=== PATIENT | female | born 1975 | race African-American/Black ===

== ENCOUNTER 2022-07-26 08:14 | Emergency (ER) | payer OTHER ==
[2022-07-26] MEDS ORDERED: diphenhydrAMINE INJ 50 MG/ML VIAL IVP STA (08:36)
[2022-07-26] MEDS ORDERED: KETOROLAC 15 MG/ML VIAL IVP STA (08:36)
--- NOTE | 2022-07-26 08:40 | ED Physician Documentation ---
PD HPI CHEST PAIN - Stated complaint Stated Complaint: SOA/COUGH/RASH - Chief complaint Chief Complaint: Resp - History obtained from History obtained from: Patient - Additional information Additional information: This is a previously healthy 47-year-old woman who went to [facility] a week ago today for chest pain with dry cough. Reportedly per her, chest x-ray was done with no pertinent positive findings and she was sent home. She continued to have severe anterior persistent chest pain that kept her up at night. No real radiation to it and she is short of breath with it without pleuritic pain. She went back to [place] yesterday and had a repeat x-ray done with a nasal swab. She reports that she was positive for metapneumovirus with findings of pneumonia on x-ray and started on doxycycline. Shortly after starting the doxycycline she developed body wide rash and itching. Her symptoms are no better. She denies recent travel or pedal edema or calf pain. She has had subjective and fevers and chills. Cough continues to be dry. 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) - Past Surgical History Past Surgical History: Yes /BUTTER WRAPPER: section, Other - Present Medications Home Medications: Ambulatory Orders Medication Instructions Recorded Confirmed Cefdinir 300 mg PO BID #20 cap 07/26/22 Doxepin [SINEquan] 10 mg PO TID PRN #15 cap 07/26/22 Meloxicam [Mobic] 7.5 mg PO BID PRN #20 tablet 07/26/22 - Allergies Allergies/Adverse Reactions: Allergies Allergy/AdvReac Type Severity Reaction Status Date / Time amoxicillin Allergy Rash Verified 07/26/22 08:26 - Social History Does the pt smoke?: No Smoking Status: Never smoker Does the pt drink ETOH?: Yes Does the pt have substance abuse?: No - Immunizations Immunizations are current?: Yes - POLST Patient has POLST: No PD ED PE NORMAL - Vitals Vital signs reviewed: Yes - General General: Alert and oriented X 3, No acute distress - HEENT HEENT: PERRL, EOMI, Ears normal - Neck Neck: Supple, no meningeal sign, No bony TTP - Cardiac Cardiac: RRR, No murmur - Respiratory Respiratory: No respiratory distress, Clear bilaterally, Other (Chest pain is reproducible with anterior palpation to the right superior sternum.) - Abdomen Abdomen: Non tender - Back Back: No CVA TTP, No spinal TTP - Derm Derm: Normal color, Warm and dry, Other (Mild body wide nonspecific rash) - Extremities Extremities: No edema, No calf tenderness / cord - Neuro Neuro: Alert and oriented X 3, Normal speech - Psych Psych: Normal mood, Normal affect Results - Vitals Vitals: Vital Signs - 24 hr 07/26/22 07/26/22 08:22 09:57 Temperature 36.2 C L Heart Rate 93 71 Respiratory 18 16 Rate Blood Pressure 116/84 H 142/88 H O2 Saturation 100 97 Oxygen O2 Source Room air - EKG (time done) 0844 Rate: Rate (enter#) (75) Rhythm: NSR [place]: Normal Intervals: Normal NM QRS: LVH Ischemia: T wave inversion Compare to prior EKG: Changed from prior EKG (Compared with EKG dated 11/25/2012 she has new LVH and deep T wave inversion inferiorly/septal/laterally) Computer interpretation: Agree with computer - Labs Labs: Laboratory Tests 07/26/22 07/26/22 07/26/22 08:41 08:41 08:41 WBC 6.1 RBC 4.51 Hgb 13.5 Hct 40.1 MCV 88.9 MCH 29.9 MCHC 33.7 RDW 12.1 Plt Count 200 MPV 10.1 Neut # (Auto) 3.4 Lymph # (Auto) 2.1 [place] # (Auto) 0.4 Eos # (Auto) 0.2 Baso # (Auto) 0.0 Absolute Nucleated RBC 0.00 Nucleated RBC % 0.0 Sodium 137 Potassium 3.3 L Chloride 101 Carbon Dioxide 27 Anion Gap 9.0 BUN 10 Creatinine 0.9 Estimated GFR (MDRD) 82 L Glucose 123 H Calcium 9.2 Total Bilirubin 0.8 AST 47 H ALT 47 Alkaline Phosphatase 159 H Troponin I High Sens 4.3 Total Protein 8.2 Albumin 4.2 Globulin 4.0 Albumin/Globulin Ratio 1.1 - Rads (name of study) CT PA Radiology: Final report received, EMP read indepedently PD Medical Decision Making - ED course ED course: 47-year-old woman who presents with chest pain ongoing for a week with an abnormal EKG. Initially the EKG was compared with the most recent EKG in the chart dated November 25, 2012. However on further review I noticed that EKG had a different name on it so we actually did not have a prior EKG to compare with. I emailed the planning and analysis manager records to let her know of the inconsistency. Her EKG does show LVH with inverted T waves. Now the acuity of this is unknown. There was a concern for PE and CTPA was done without findings of that but she did have findings consistent with pneumonia. She has a history of amoxicillin allergy and now has a reaction to doxycycline. After the administration of Toradol and Benadryl she was feeling much better and we will change up her antibiotics, and follow-up with her PCP for consideration for echocardiography was discussed and stressed with the patient given the EKG findings. Departure - Departure Disposition: 01 Home, Self Care Clinical Impression: Chest pain Qualifiers: Chest pain type: unspecified Qualified Code(s): R07.9 - Chest pain, unspecified Pneumonia Qualifiers: Pneumonia type: due to unspecified organism Laterality: left Lung location: lower lobe of lung Qualified Code(s): J18.9 - Pneumonia, unspecified organism Condition: Good Record reviewed to determine appropriate education?: Yes Instructions: Pneumonia Dc Prescriptions: Cefdinir 300 mg PO BID #20 cap Meloxicam [Mobic] 7.5 mg PO BID PRN #20 tablet PRN Reason: Pain Doxepin [SINEquan] 10 mg PO TID PRN #15 cap PRN Reason: Itching Comments: I sent your prescriptions electronically to [facility] in [place]. As discussed, you do have an abnormal EKG, there is no sign of active heart disease on your labs so I suspect this is not related to your current pain and we do have another explanation for the pain which is the pneumonia. That said you should follow-up with your primary care physician both for recheck of the pneumonia as well as consideration for echocardiography given the abnormal EKG. Probably safe to assume that going forward you are allergic to doxycycline in addition to the amoxicillin you are previously allergic to. Return for new or worsening symptoms.
[2022-07-26 08:45] LABS: BASOPHILS % (AUTO) 0.3 %; EOSINOPHILS # (AUTO) 0.2 10^3/uL (0.0-0.7); EOSINOPHILS % (AUTO) 3.3 %; HCT - HEMATOCRIT 40.1 % (37.0-47.0); HGB - HEMOGLOBIN 13.5 g/dL (12.0-16.0); LYMPHOCYTES # (AUTO) 2.1 10^3/uL (1.5-3.5); LYMPHOCYTES % (AUTO) 35.1 %; MEAN CORPUSCULAR HEMOGLOBIN 29.9 pg (27.0-31.0); MEAN CORPUSCULAR HGB CONC 33.7 g/dL (32.0-36.0); MEAN CORPUSCULAR VOLUME 88.9 fL (81.0-99.0); MEAN PLATELET VOLUME 10.1 fL (7.9-10.8); MONOCYTES # (AUTO) 0.4 10^3/uL (0.0-1.0); MONOCYTES % (AUTO) 5.9 %; NEUTROPHILS # (AUTO) 3.4 10^3/uL (1.5-6.6); NEUTROPHILS % (AUTO) 55.1 %; PLT - PLATELET COUNT 200 10^3/uL (130-450); RED BLOOD COUNT 4.51 10^6/uL (4.20-5.40); RED CELL DISTRIBUTION WIDTH 12.1 % (12.0-15.0); WHITE BLOOD COUNT 6.1 x10^3/uL (4.8-10.8)
[2022-07-26] MEDS ORDERED: iohexoL-300 100 ML VIAL ONE (08:48)
[2022-07-26 09:08] LABS: ALBUMIN 4.2 g/dL (3.2-5.5); ALBUMIN/GLOBULIN RATIO 1.1 (1.0-2.2); BILIRUBIN,TOTAL 0.8 mg/dL (0.2-1.0); CALCIUM 9.2 mg/dL (8.5-10.3); CREATININE 0.9 mg/dL (0.4-1.0); POTASSIUM 3.3 mmol/L (3.5-5.0); TOTAL PROTEIN 8.2 g/dL (6.7-8.2)
--- OUTSIDE RECORDS SUMMARY | 2022-07-26 09:14 | EXTERNAL MEDICAL SUMMARY RPT | Continuity of Care Document ---
:1975 Author Organization [facility] Address [address] [place] [address] Phone Care Team Providers Name Role Phone Christiano Suárez Unavailable Unavailable Allergies and Intolerances date description facility type (no date) Mild [facility] (unknown) (no date) amoxicillin [facility] (unknown) Encounters No information. Functional Status No information. Immunizations No information. Medications date description facility 2022-07-25 00:00 Doxycycline Hyclate [facility] 2022-07-20 00:00 Benzonatate [facility] Problems date description facility 2022-07-20 00:00 Acute upper respiratory infection [facility] 2022-07-25 00:00 Human metapneumovirus (hMPV) pneumonia [facility] 2022-07-25 00:00 Atypical pneumonia [facility] Procedures date description facility 2022-07-20 00:00 X-ray of chest, two views [facility] 2022-07-25 00:00 Computed tomography angiography of ches t with [facility] contrast for pulmonary embolus Results/Labs test date author facility value unit interpret ation Result panel 1 (unknown) (no date[facility]) Result panel 2 (unknown) (no date) (unknown[facility]) Result panel 3 (unknown) (no date) (unknown[facility]) Result panel 4 (unknown) (no date) (unknown[facility]) Result panel 5 (unknown) (no date) (unknown[facility]) Result panel 6 (unknown) (no date) (unknown[facility]) Result panel 7 (unknown) (no date) (unknown[facility]) Result panel 8 (unknown) (no date) (unknown[facility]) Result panel 9 (unknown) (no date) (unknown[facility]) Result panel 10 (unknown) (no date) (unknown[facility]) Result panel 11 (unknown) (no date) (unknown[facility]) Result panel 12 (unknown) (no date) (unknown[facility]) Result panel 13 (unknown) (no date) (unknown[facility]) Result panel 14 (unknown) (no date) (unknown[facility]) Result panel 15 (unknown) (no date) (unknown[facility]) Result panel 16 (unknown) (no date) (unknown[facility]) Result panel 17 (unknown) (no date) (unknown[facility]) Result panel 18 (unknown) (no date) (unknown[facility]) Result panel 19 (unknown) (no date) (unknown[facility]) Result panel 20 (unknown) (no date) (unknown[facility]) Result panel 21 (unknown) (no date) (unknown[facility]) Result panel 22 (unknown) (no date) (unknown[facility]) Result panel 23 (unknown) (no date) (unknown[facility]) Result panel 24 (unknown) (no date) (unknown[facility]) Result panel 25 (unknown) (no date) (unknown[facility]) Result panel 26 (unknown) (no date) (unknown[facility]) Result panel 27 (unknown) (no date) (unknown[facility]) Result panel 28 (unknown) (no date) (unknown[facility]) Result panel 29 (unknown) (no date) (unknown[facility]) Result panel 30 (unknown) (no date) (unknown[facility]) Result panel 31 (unknown) (no date) (unknown[facility]) Result panel 32 (unknown) (no date) (unknown[facility]) Result panel 33 (unknown) (no date) (unknown[facility]) Result panel 34 (unknown) (no date) (unknown[facility]) Result panel 35 (unknown) (no date) (unknown[facility]) Result panel 36 (unknown) (no date) (unknown[facility]) Result panel 37 (unknown) (no date) (unknown[facility]) Result panel 38 (unknown) (no date) (unknown[facility]) Result panel 39 (unknown) (no date) (unknown[facility]) Result panel 40 (unknown) (no date) (unknown[facility]) Result panel 41 (unknown) (no date) (unknown[facility]) Result panel 42 (unknown) (no date) (unknown[facility]) Result panel 43 (unknown) (no date) (unknown[facility]) Result panel 44 (unknown) (no date) (unknown[facility]) Result panel 45 (unknown) (no date) (unknown[facility]) Result panel 46 (unknown) (no date) (unknown[facility]) Result panel 47 (unknown) (no date) (unknown[facility]) Result panel 48 (unknown) (no date) (unknown[facility]) Result panel 49 (unknown) (no date) (unknown[facility]) Result panel 50 (unknown) (no date) (unknown[facility]) Result panel 51 (unknown) (no date) (unknown[facility]) Result panel 52 (unknown) (no date) (unknown[facility]) Result panel 53 (unknown) (no date) (unknown[facility]) Result panel 54 (unknown) (no date) (unknown[facility]) Result panel 55 (unknown) (no date) (unknown[facility]) Result panel 56 (unknown) (no date) (unknown[facility]) Result panel 57 (unknown) (no date) (unknown) (unknown) (no value) (units (un known) unknown) (unknown) (no date) (unknown) (unknown) 07/20/22 (units (unkn own) unknown) (unknown) (no date) (unknown) (unknown) [address] (units ([address] nown) [address] unknown) (unknown) (no date) (unknown) (unknown) Accession (units (unk nown) Number: unknown) [id number] (unknown) (no date) (unknown) (unknown) Age/Sex: 47 / (units (unknown) F Date of unknown) Service: (unknown) (no date) (unknown) (unknown) [place], [place] (units (unknown) [id number] unknown) (unknown) (no date) (unknown) (unknown) Approved by: (units ( unknown) [place] unknown) Monica Jacome on 07/20/2022 at 9:53 (unknown) (no date) (unknown) (unknown) Bones and (units (unk nown) chest wall: No unknown) suspicious bony abnormalities. Soft tissues appear (unknown) (no date) (unknown) (unknown) COMPARISON: (units (u nknown) None. unknown) (unknown) (no date) (unknown) (unknown) : (units (unkn own) 1975 unknown) Acct:[id number] (unknown) (no date) (unknown) (unknown) Dictated by: (units ( unknown) [place] unknown) Monica Jacome on 07/20/2022 at 9:52 (unknown) (no date) (unknown) (unknown) FINDINGS: (units (unk nown) unknown) (unknown) (no date) (unknown) (unknown) IMPRESSION: (units (u nknown) Borderline unknown) cardiomegaly. No evidence acute pulmonary process. (unknown) (no date) (unknown) (unknown) INDICATIONS: (units ( unknown) cough x 21 unknown) days, now fever (unknown) (no date) (unknown) (unknown) [facility] (unknown) (no date) (unknown) (unknown) Loc: ED (units (unkn own) unknown) (unknown) (no date) (unknown) (unknown) Lungs and (units (unk nown) pleura: Lungs unknown) are clear. No pleural effusions or pneumothorax. (unknown) (no date) (unknown) (unknown) [id number] (units (un known) unknown) (unknown) (no date) (unknown) (unknown) Mediastinum: (units ( unknown) Mediastinal unknown) contours are normal. Borderline cardiomegaly. (unknown) (no date) (unknown) (unknown) Ordering (units (unkn own) Provider: unknown) Reji Ku D.O. (unknown) (no date) (unknown) (unknown) PROCEDURE: XR (units (unknown) CHEST 2V unknown) (unknown) (no date) (unknown) (unknown) Patient: (units (unkn own) Jason Nam unknown) M MR#: (unknown) (no date) (unknown) (unknown) Procedure: XR (units (unknown) chest 2V unknown) (unknown) (no date) (unknown) (unknown) Signed (units (unkn own) unknown) (unknown) (no date) (unknown) (unknown) Surgical (units (unkn own) changes and unknown) devices: None. (unknown) (no date) (unknown) (unknown) TECHNIQUE: 2 (units ( unknown) views of the unknown) chest were acquired. (unknown) (no date) (unknown) (unknown) XRay Report (units (u nknown) unknown) (unknown) (no date) (unknown) (unknown) unremarkable. (units (unknown) unknown) Result panel 58 (unknown) (no date) (unknown) (unknown) Flu A (units (unkn own) NEGATIVE unknown) (unknown) (no date) (unknown) (unknown) Flu B (units (unkn own) NEGATIVE unknown) (unknown) (no date) (unknown) (unknown) Negative (units (unkn own) unknown) (unknown) (no date) (unknown) (unknown) Negative (units (unkn own) unknown) Result panel 59 (unknown) (no (unknown) (unknown) (no value) (units (unk nown) date) unknown) (unknown) (no (unknown) (unknown) #30 caps (units (unkno wn) date) unknown) (unknown) (no (unknown) (unknown) <Electronically (units (unknown) date) signed by Lexii unknown) P.A-C Laz> (unknown) (no (unknown) (unknown) [id number] (units (unkn own) date) unknown) (unknown) (no (unknown) (unknown) 07/20/22 09:40 (units (unknown) date) unknown) (unknown) (no (unknown) (unknown) 07/20/22 09:41 (units (unknown) date) unknown) (unknown) (no (unknown) (unknown) 07/20/22 1238 (units ( unknown) date) unknown) (unknown) (no (unknown) (unknown) 07/20/22 (units (unkno wn) date) Range/Units unknown) (unknown) (no (unknown) (unknown) 07/20/22 (units (unkno wn) date) unknown) (unknown) (no (unknown) (unknown) 09:34 07/20/22 (units (unknown) date) unknown) (unknown) (no (unknown) (unknown) 09:41 (units (unkno wn) date) unknown) (unknown) (no (unknown) (unknown) 09:44 07/20/22 (units (unknown) date) unknown) (unknown) (no (unknown) (unknown) 11:33 (units (unkno wn) date) unknown) (unknown) (no (unknown) (unknown) 200 mg PO TID PRN (units (unknown) date) (Reason: cough) 10 unknown) Days Qty: 30 0RF (unknown) (no (unknown) (unknown) 47-year-old female (units (unknown) date) presents to the ED unknown) with 2 days of fever, cough. Concern for (unknown) (no (unknown) (unknown) 47-year-old female (units (unknown) date) presents to the ED unknown) with 2 days of fever, cough. Patient (unknown) (no (unknown) (unknown) Abnormal Pap smear (units (unknown) date) of cervix unknown) (unknown) (no (unknown) (unknown) Acetaminophen (units ( unknown) date) (Acetaminophen 325 unknown) Mg Tablet) 975 mg PO NOW ONE (unknown) (no (unknown) (unknown) Activity (units (unkno wn) date) Restrictions/Additi unknown) onal Instructions: (unknown) (no (unknown) (unknown) Acute upper (units (un known) date) respiratory unknown) infection (unknown) (no (unknown) (unknown) Age/Sex: 47 / F (units (unknown) date) unknown) (unknown) (no (unknown) (unknown) Allergic/Immunolog (units (unknown) date) ic unknown) (unknown) (no (unknown) (unknown) Allergic/Immunolog (units (unknown) date) ic: Denies unknown) urticaria, Denies throat swelling and Denies (unknown) (no (unknown) (unknown) Allergies (units (unkn own) date) unknown) (unknown) (no (unknown) (unknown) Allergy/AdvReac (units (unknown) date) Type Severity unknown) Reaction Status Date / Time (unknown) (no (unknown) (unknown) Auscultation:?mateo (units (unknown) date) r to auscultation unknown) bilaterally (unknown) (no (unknown) (unknown) Blood Pressure (units (unknown) date) 117/74 07/20/22 unknown) 09:34 (unknown) (no (unknown) (unknown) Blood Pressure (units (unknown) date) 117 unknown) (unknown) (no (unknown) (unknown) Blood Pressure (units (unknown) date) unknown) (unknown) (no (unknown) (unknown) CVA (cerebral (units ( unknown) date) vascular accident) unknown) (unknown) (no (unknown) (unknown) Cardio (units (unkno wn) date) unknown) (unknown) (no (unknown) (unknown) Cardiovascular (units (unknown) date) unknown) (unknown) (no (unknown) (unknown) Cardiovascular: (units (unknown) date) Denies chest pain, unknown) Denies irregular heart rhythm, Denies (unknown) (no (unknown) (unknown) Chief Complaint: (units (unknown) date) Fever unknown) (unknown) (no (unknown) (unknown) Clinical (units (unkno wn) date) Impression: unknown) (unknown) (no (unknown) (unknown) Const (units (unkno wn) date) unknown) (unknown) (no (unknown) (unknown) Constitutional (units (unknown) date) unknown) (unknown) (no (unknown) (unknown) Constitutional: (units (unknown) date) Reports chills, unknown) Denies fatigue, Reports fever(s), Denies (unknown) (no (unknown) (unknown) Course (units (unkno wn) date) unknown) (unknown) (no (unknown) (unknown) Covid-19 + FLU A/B (units (unknown) date) + RSV - PCR Stat unknown) (unknown) (no (unknown) (unknown) : 1975 (units (unknown) date) Acct:[id number] unknown) (unknown) (no (unknown) (unknown) Date of Service: (units (unknown) date) 07/20/22 unknown) (unknown) (no (unknown) (unknown) Denies frequent (units (unknown) date) falls, Denies loss unknown) of vision, Denies numbness, Denies tingling (unknown) (no (unknown) (unknown) Denies loss of (units (unknown) date) vision unknown) (unknown) (no (unknown) (unknown) Denies numbness (units (unknown) date) and Denies tingling unknown) (unknown) (no (unknown) (unknown) Denies wheezing (units (unknown) date) unknown) (unknown) (no (unknown) (unknown) Departure (units (unkn own) date) unknown) (unknown) (no (unknown) (unknown) Diabetes mellitus (units (unknown) date) unknown) (unknown) (no (unknown) (unknown) Discharge Plan (units (unknown) date) unknown) (unknown) (no (unknown) (unknown) Discontinued (units (u nknown) date) Medications unknown) (unknown) (no (unknown) (unknown) Documented By: KLS (units (unknown) date) unknown) (unknown) (no (unknown) (unknown) ED Orders (units (unkn own) date) unknown) (unknown) (no (unknown) (unknown) ENT (units (unkno wn) date) unknown) (unknown) (no (unknown) (unknown) ER Physician: (units ( unknown) date) Laz,Hyma P.A-C unknown) (unknown) (no (unknown) (unknown) Ears, Nose, Mouth, (units (unknown) date) and Throat: Denies unknown) change in voice, Denies dizziness, Denies (unknown) (no (unknown) (unknown) Ears:?hearing (units ( unknown) date) grossly normal unknown) bilaterally (unknown) (no (unknown) (unknown) Effort + (units (unkno wn) date) Inspection:?normal unknown) respiratory effort (unknown) (no (unknown) (unknown) Emergency Report (units (unknown) date) unknown) (unknown) (no (unknown) (unknown) Endocrine (units (unkn own) date) unknown) (unknown) (no (unknown) (unknown) Endocrine: Denies (units (unknown) date) fatigue, Denies unknown) flushing and Denies palpitations (unknown) (no (unknown) (unknown) Exam Narrative: (units (unknown) date) unknown) (unknown) (no (unknown) (unknown) Exam (units (unkno wn) date) unknown) (unknown) (no (unknown) (unknown) Eyes (units (unkno wn) date) unknown) (unknown) (no (unknown) (unknown) Eyes: Denies (units (u nknown) date) change in vision, unknown) Denies eye discharge, Denies irritation and (unknown) (no (unknown) (unknown) Face and (units (unkno wn) date) sinus:?normal unknown) facial exam and sinuses nontender (unknown) (no (unknown) (unknown) Family History (units (unknown) date) (Reviewed 07/20/22 unknown) @ 12:35 by Lexii Nesbitt PA-C) (unknown) (no (unknown) (unknown) Father (units (unknown) date) Suicide unknown) (unknown) (no (unknown) (unknown) Gastrointestinal (units (unknown) date) unknown) (unknown) (no (unknown) (unknown) Gastrointestinal: (units (unknown) date) Denies abdominal unknown) pain, Denies change in bowel habits, Denies (unknown) (no (unknown) (unknown) General (units (unkno wn) date) unknown) (unknown) (no (unknown) (unknown) General:?appearanc (units (unknown) date) e normal, both eyes unknown) and all related structures (unknown) (no (unknown) (unknown) General:?cooperati (units (unknown) date) ve, healthy unknown) appearing and comfortable (unknown) (no (unknown) (unknown) General:?patient (units (unknown) date) alert, patient unknown) awake and patient oriented x3 (unknown) (no (unknown) (unknown) Genitourinary (units ( unknown) date) unknown) (unknown) (no (unknown) (unknown) Genitourinary: (units (unknown) date) Denies hematuria, unknown) Denies flank pain, Denies urinary incontinence (unknown) (no (unknown) (unknown) HENMT (units (unkno wn) date) unknown) (unknown) (no (unknown) (unknown) HPI - Fever (units (un known) date) unknown) (unknown) (no (unknown) (unknown) HPI Narrative: (units (unknown) date) unknown) (unknown) (no (unknown) (unknown) Head:?normal to (units (unknown) date) inspection unknown) (unknown) (no (unknown) (unknown) Hematologic/Lympha (units (unknown) date) tic unknown) (unknown) (no (unknown) (unknown) Hematologic/Lympha (units (unknown) date) tic: Denies easy unknown) bruising (unknown) (no (unknown) (unknown) History of Present (units (unknown) date) Illness unknown) (unknown) (no (unknown) (unknown) History of (units (unk nown) date) cervical cerclage unknown) (unknown) (no (unknown) (unknown) History of (units (unk nown) date) stillbirth unknown) (unknown) (no (unknown) (unknown) History of (units (unk nown) date) unilateral unknown) oophorectomy (unknown) (no (unknown) (unknown) History of use of (units (unknown) date) contraceptive unknown) intrauterine device (IUD) (unknown) (no (unknown) (unknown) History of vaginal (units (unknown) date) delivery unknown) (unknown) (no (unknown) (unknown) Christiano Suárez, (units (unknown) date) [Primary Care unknown) Provider] (unknown) (no (unknown) (unknown) Hyperlipidemia (units (unknown) date) unknown) (unknown) (no (unknown) (unknown) Influenza A (units (un known) date) (RT-PCR) Flu a unknown) negative (NEGATIVE) (unknown) (no (unknown) (unknown) Influenza B (units (un known) date) (RT-PCR) Flu b unknown) negative (NEGATIVE) (unknown) (no (unknown) (unknown) Initial Vital (units ( unknown) date) Signs unknown) (unknown) (no (unknown) (unknown) Initial Vital (units ( unknown) date) Signs: unknown) (unknown) (no (unknown) (unknown) Instructions: DI (units (unknown) date) for Viral Upper unknown) Respiratory Infection -- Adult (unknown) (no (unknown) (unknown) Integumentary/[place] (units (unknown) date) sts unknown) (unknown) (no (unknown) (unknown) [facility] (units (unknown) date) [address] unknown) [place] [address] (unknown) (no (unknown) (unknown) Lab Data (units (unkno wn) date) unknown) (unknown) (no (unknown) (unknown) Lab Results (units (un known) date) unknown) (unknown) (no (unknown) (unknown) Labs: (units (unkno wn) date) unknown) (unknown) (no (unknown) (unknown) Last Admin: (units (un known) date) 07/20/22 09:44 unknown) Dose: 975 mg (unknown) (no (unknown) (unknown) MDM - Fever (units (un known) date) unknown) (unknown) (no (unknown) (unknown) MDM Narrative (units ( unknown) date) unknown) (unknown) (no (unknown) (unknown) Medical History (units (unknown) date) (Reviewed 07/20/22 unknown) @ 12:35 by Lexii Nesbitt PA-C) (unknown) (no (unknown) (unknown) Medical decision (units (unknown) date) making narrative: unknown) (unknown) (no (unknown) (unknown) Medical records (units (unknown) date) reviewed: Yes unknown) (unknown) (no (unknown) (unknown) Medication (units (unk nown) date) Instructions unknown) Recorded (unknown) (no (unknown) (unknown) Mode of arrival: (units (unknown) date) Ambulatory unknown) (unknown) (no (unknown) (unknown) Mother (units (unknown) date) Hypertension unknown) (unknown) (no (unknown) (unknown) Mouth:?oral (units (un known) date) mucosae normal unknown) (unknown) (no (unknown) (unknown) Musculoskeletal (units (unknown) date) unknown) (unknown) (no (unknown) (unknown) Musculoskeletal: (units (unknown) date) Denies back pain, unknown) Denies muscle weakness, Denies neck pain, (unknown) (no (unknown) (unknown) Narrative (units (unkn own) date) unknown) (unknown) (no (unknown) (unknown) Neck (units (unkno wn) date) unknown) (unknown) (no (unknown) (unknown) Neck:?normal (units (u nknown) date) visual inspection unknown) and no lymphadenopathy noted (unknown) (no (unknown) (unknown) Neuro (units (unkno wn) date) unknown) (unknown) (no (unknown) (unknown) Neurologic (units (unk nown) date) unknown) (unknown) (no (unknown) (unknown) Neurologic: Denies (units (unknown) date) behavioral changes, unknown) Denies confusion, Denies dizziness, (unknown) (no (unknown) (unknown) New (units (unkno wn) date) unknown) (unknown) (no (unknown) (unknown) Nose:?external (units (unknown) date) nose normal unknown) (unknown) (no (unknown) (unknown) Ordered: (units (unkno wn) date) unknown) (unknown) (no (unknown) (unknown) Orders (units (unkno wn) date) unknown) (unknown) (no (unknown) (unknown) Oxygen Delivery (units (unknown) date) Method 07/20/22 unknown) 09:34 (unknown) (no (unknown) (unknown) Oxygen Delivery (units (unknown) date) Method Room Air unknown) (unknown) (no (unknown) (unknown) Oxygen Delivery (units (unknown) date) Method unknown) (unknown) (no (unknown) (unknown) Patient (units (unkno wn) date) Disposition: Home unknown) (unknown) (no (unknown) (unknown) Patient History (units (unknown) date) unknown) (unknown) (no (unknown) (unknown) Patient agrees to (units (unknown) date) follow-up with her unknown) PCP, agrees to return to the ED if she (unknown) (no (unknown) (unknown) Patient: (units (unkno wn) date) EmilianoJason M unknown) MR#: M (unknown) (no (unknown) (unknown) Prescriptions: (units (unknown) date) unknown) (unknown) (no (unknown) (unknown) Previous Rx's (units ( unknown) date) unknown) (unknown) (no (unknown) (unknown) Psychiatric (units (un known) date) unknown) (unknown) (no (unknown) (unknown) Psychiatric: Denies (units (unknown) date) anxiety, Denies unknown) behavioral changes, Denies confusion, Denies (unknown) (no (unknown) (unknown) Pulse Oximetry 98 (units (unknown) date) 07/20/22 09:34 unknown) (unknown) (no (unknown) (unknown) Pulse Oximetry 98 (units (unknown) date) unknown) (unknown) (no (unknown) (unknown) Pulse Oximetry (units (unknown) date) unknown) (unknown) (no (unknown) (unknown) Pulse Rate 95 H (units (unknown) date) 07/20/22 09:34 unknown) (unknown) (no (unknown) (unknown) Pulse Rate 95 H (units (unknown) date) unknown) (unknown) (no (unknown) (unknown) Pulse Rate (units (unk nown) date) unknown) (unknown) (no (unknown) (unknown) ROS Unobtainable: (units (unknown) date) All systems unknown) reviewed + are unremarkable except as noted in HPI (unknown) (no (unknown) (unknown) RSV (PCR) Negative (units (unknown) date) (Negative) unknown) (unknown) (no (unknown) (unknown) Rate:?regular rate (units (unknown) date) unknown) (unknown) (no (unknown) (unknown) Referrals: (units (unk nown) date) unknown) (unknown) (no (unknown) (unknown) Related Data (units (u nknown) date) unknown) (unknown) (no (unknown) (unknown) Resp (units (unkno wn) date) unknown) (unknown) (no (unknown) (unknown) Respiratory Rate (units (unknown) date) 14 07/20/22 09:34 unknown) (unknown) (no (unknown) (unknown) Respiratory Rate (units (unknown) date) 14 unknown) (unknown) (no (unknown) (unknown) Respiratory Rate (units (unknown) date) unknown) (unknown) (no (unknown) (unknown) Respiratory (units (un known) date) unknown) (unknown) (no (unknown) (unknown) Respiratory: (units (u nknown) date) Reports cough, unknown) Denies dyspnea, Denies dyspnea on exertion and (unknown) (no (unknown) (unknown) Review of Systems (units (unknown) date) unknown) (unknown) (no (unknown) (unknown) Rhythm:?regular (units (unknown) date) rhythm unknown) (unknown) (no (unknown) (unknown) SARS-CoV-2 (PCR) (units (unknown) date) Negative (Negative) unknown) (unknown) (no (unknown) (unknown) Signed By: (units (unk nown) date) unknown) (unknown) (no (unknown) (unknown) Skin/Breast: (units (u nknown) date) Denies pruritus, unknown) Denies erythema, Denies rash and Denies wounds (unknown) (no (unknown) (unknown) Smoking Status: (units (unknown) date) Never smoker unknown) (unknown) (no (unknown) (unknown) Social History (units (unknown) date) (Reviewed 07/20/22 unknown) @ 12:35 by Lexii Nesbitt PA-C) (unknown) (no (unknown) (unknown) Source: patient (units (unknown) date) unknown) (unknown) (no (unknown) (unknown) Stand Alone Forms: (units (unknown) date) Patient Portal/API unknown) (unknown) (no (unknown) (unknown) Stated Complaint: (units (unknown) date) cough unknown) T-21/fever/chest pain (unknown) (no (unknown) (unknown) Stop: 07/20/22 (units (unknown) date) 09:40 unknown) (unknown) (no (unknown) (unknown) Substance Use (units ( unknown) date) Type: does not use unknown) (unknown) (no (unknown) (unknown) Surgical History (units (unknown) date) (Reviewed 07/20/22 unknown) @ 12:35 by Lexii Nesbitt PA-C) (unknown) (no (unknown) (unknown) Temperature 101.5 (units (unknown) date) F H 07/20/22 09:34 unknown) (unknown) (no (unknown) (unknown) Temperature 101.5 (units (unknown) date) F H 101.5 F H 99.3 unknown) F (unknown) (no (unknown) (unknown) Temperature 99.3 F (units (unknown) date) unknown) (unknown) (no (unknown) (unknown) Throat:?posterior (units (unknown) date) oropharynx normal unknown) (unknown) (no (unknown) (unknown) Time Seen by (units (u nknown) date) Provider: 07/20/22 unknown) 11:56 (unknown) (no (unknown) (unknown) Vital Signs - 8 hr (units (unknown) date) unknown) (unknown) (no (unknown) (unknown) Vital Signs (units (un known) date) unknown) (unknown) (no (unknown) (unknown) Vital signs: (units (u nknown) date) unknown) (unknown) (no (unknown) (unknown) XR chest 2V Stat (units (unknown) date) unknown) (unknown) (no (unknown) (unknown) You were evaluated (units (unknown) date) in the ED today for unknown) a fever and a cough. You were negative (unknown) (no (unknown) (unknown) alcohol intake (units (unknown) date) frequency: unknown) holidays/special occasions only (unknown) (no (unknown) (unknown) alcohol intake: (units (unknown) date) current unknown) ('sometimes') (unknown) (no (unknown) (unknown) amoxicillin (units (un known) date) [AMOXICILLIN] unknown) Allergy Mild rash Verified 07/20/22 09:38 (unknown) (no (unknown) (unknown) and Denies (units (unk nown) date) orthopnea unknown) (unknown) (no (unknown) (unknown) and Denies urinary (units (unknown) date) urgency unknown) (unknown) (no (unknown) (unknown) and Denies (units (unk nown) date) weakness unknown) (unknown) (no (unknown) (unknown) and below (units (unkn own) date) unknown) (unknown) (no (unknown) (unknown) benzonatate 200 mg (units (unknown) date) capsule 200 mg PO unknown) TID PRN cough 10 days 07/20/22 (unknown) (no (unknown) (unknown) benzonatate 200 mg (units (unknown) date) capsule unknown) (unknown) (no (unknown) (unknown) depression, Denies (units (unknown) date) homicidal ideation unknown) and Denies suicidal ideation (unknown) (no (unknown) (unknown) diarrhea, Denies (units (unknown) date) nausea and Denies unknown) vomiting (unknown) (no (unknown) (unknown) experiences chest (units (unknown) date) pain, trouble unknown) breathing. (unknown) (no (unknown) (unknown) follow-up with (units (unknown) date) your PCP in a week. unknown) Return to the ED if you have any chest pain (unknown) (no (unknown) (unknown) for COVID-19, (units ( unknown) date) influenza, RSV. unknown) Your chest x-ray does not show a pneumonia. Your (unknown) (no (unknown) (unknown) frequent falls, (units (unknown) date) Denies lethargy and unknown) Denies weakness (unknown) (no (unknown) (unknown) hydration. You are (units (unknown) date) being prescribed unknown) Tessalon Perles for your cough. Please (unknown) (no (unknown) (unknown) lightheadedness, (units (unknown) date) Denies unknown) palpitations, Denies dyspnea, Denies dyspnea on exertion (unknown) (no (unknown) (unknown) lightheadedness, (units (unknown) date) dizziness, syncope. unknown) Patient is tolerating p.o. well. (unknown) (no (unknown) (unknown) neck pain, Denies (units (unknown) date) sore throat and unknown) Denies throat swelling (unknown) (no (unknown) (unknown) or trouble (units (unk nown) date) breathing. unknown) (unknown) (no (unknown) (unknown) presentation to (units (unknown) date) the ED, was given unknown) Tylenol with successfully brought her (unknown) (no (unknown) (unknown) respiratory panel (units (unknown) date) which was negative unknown) for COVID, influenza, RSV. Obtained x-ray (unknown) (no (unknown) (unknown) rhinorrhea, sore (units (unknown) date) throat, chest pain, unknown) shortness of breath, nausea, vomiting, (unknown) (no (unknown) (unknown) started running a (units (unknown) date) fever over the last unknown) couple of days. Patient denies (unknown) (no (unknown) (unknown) states she has (units (unknown) date) been intermittently unknown) coughing for the last 3 weeks, however (unknown) (no (unknown) (unknown) substance use (units ( unknown) date) type: does not use unknown) (unknown) (no (unknown) (unknown) supportive (units (unk nown) date) measures with unknown) Tylenol, ibuprofen, Tessalon Perles, good hydration. (unknown) (no (unknown) (unknown) symptoms are (units (u nknown) date) likely due to a unknown) viral upper respiratory infection. You may treat (unknown) (no (unknown) (unknown) temperature down (units (unknown) date) to 99.3 F. unknown) discussed findings with patient, recommend (unknown) (no (unknown) (unknown) the fever and body (units (unknown) date) aches with Tylenol, unknown) ibuprofen. Please continue good (unknown) (no (unknown) (unknown) to a viral upper (units (unknown) date) respiratory unknown) infection. Patient was febrile to 101.5 F on (unknown) (no (unknown) (unknown) viral upper (units (un known) date) respiratory unknown) infection versus pneumonia versus other. Obtained (unknown) (no (unknown) (unknown) wheezing (units (unkno wn) date) unknown) (unknown) (no (unknown) (unknown) with no acute (units ( unknown) date) findings, negative unknown) for pneumonia. Patient's symptoms likely due Result panel 60 (unknown) (no (unknown) (unknown) (no value) (units (unk nown) date) unknown) (unknown) (no (unknown) (unknown) #30 caps (units (unkno wn) date) unknown) (unknown) (no (unknown) (unknown) <Electronically (units (unknown) date) signed by Lexii unknown) Liza Nesbitt> (unknown) (no (unknown) (unknown) <Electronically (units (unknown) date) signed by Reji unknown) [place].O.> (unknown) (no (unknown) (unknown) <Electronically (units (unknown) date) signed by Reji unknown) Eb KuO.> (unknown) (no (unknown) (unknown) <Lexii Nesbitt PA-C (units (unknown) date) - Last Filed: unknown) 07/20/22 12:38> (unknown) (no (unknown) (unknown) <Reji Slimecarmen, (units (unknown) date) DO - Last Filed: unknown) 07/20/22 13:08> (unknown) (no (unknown) (unknown) <cosigner> (units (unk nown) date) unknown) (unknown) (no (unknown) (unknown) [id number] (units (unkn own) date) unknown) (unknown) (no (unknown) (unknown) 07/20/22 09:40 (units (unknown) date) unknown) (unknown) (no (unknown) (unknown) 07/20/22 09:41 (units (unknown) date) unknown) (unknown) (no (unknown) (unknown) 07/20/22 1238 (units ( unknown) date) unknown) (unknown) (no (unknown) (unknown) 07/20/22 1308 (units ( unknown) date) unknown) (unknown) (no (unknown) (unknown) 07/20/22 (units (unkno wn) date) Range/Units unknown) (unknown) (no (unknown) (unknown) 07/20/22 (units (unkno wn) date) unknown) (unknown) (no (unknown) (unknown) 09:34 07/20/22 (units (unknown) date) unknown) (unknown) (no (unknown) (unknown) 09:41 (units (unkno wn) date) unknown) (unknown) (no (unknown) (unknown) 09:44 07/20/22 (units (unknown) date) unknown) (unknown) (no (unknown) (unknown) 11:33 07/20/22 (units (unknown) date) unknown) (unknown) (no (unknown) (unknown) 11:33 (units (unkno wn) date) unknown) (unknown) (no (unknown) (unknown) 12:37 (units (unkno wn) date) unknown) (unknown) (no (unknown) (unknown) 200 mg PO TID PRN (units (unknown) date) (Reason: cough) 10 unknown) Days Qty: 30 0RF (unknown) (no (unknown) (unknown) 47-year-old female (units (unknown) date) presents to the ED unknown) with 2 days of fever, cough. Concern for (unknown) (no (unknown) (unknown) 47-year-old female (units (unknown) date) presents to the ED unknown) with 2 days of fever, cough. Patient (unknown) (no (unknown) (unknown) Abnormal Pap smear (units (unknown) date) of cervix unknown) (unknown) (no (unknown) (unknown) Acetaminophen (units ( unknown) date) (Acetaminophen 325 unknown) Mg Tablet) 975 mg PO NOW ONE (unknown) (no (unknown) (unknown) Activity (units (unkno wn) date) Restrictions/Additi unknown) onal Instructions: (unknown) (no (unknown) (unknown) Acute upper (units (un known) date) respiratory unknown) infection (unknown) (no (unknown) (unknown) Age/Sex: 47 / F (units (unknown) date) unknown) (unknown) (no (unknown) (unknown) Allergic/Immunolog (units (unknown) date) ic unknown) (unknown) (no (unknown) (unknown) Allergic/Immunolog (units (unknown) date) ic: Denies unknown) urticaria, Denies throat swelling and Denies (unknown) (no (unknown) (unknown) Allergies (units (unkn own) date) unknown) (unknown) (no (unknown) (unknown) Allergy/AdvReac (units (unknown) date) Type Severity unknown) Reaction Status Date / Time (unknown) (no (unknown) (unknown) Auscultation:?mateo (units (unknown) date) r to auscultation unknown) bilaterally (unknown) (no (unknown) (unknown) Blood Pressure (units (unknown) date) 117/74 07/20/22 unknown) 09:34 (unknown) (no (unknown) (unknown) Blood Pressure (units (unknown) date) 117/74 unknown) (unknown) (no (unknown) (unknown) Blood Pressure (units (unknown) date) 122/70 unknown) (unknown) (no (unknown) (unknown) CVA (cerebral (units ( unknown) date) vascular accident) unknown) (unknown) (no (unknown) (unknown) Cardio (units (unkno wn) date) unknown) (unknown) (no (unknown) (unknown) Cardiovascular (units (unknown) date) unknown) (unknown) (no (unknown) (unknown) Cardiovascular: (units (unknown) date) Denies chest pain, unknown) Denies irregular heart rhythm, Denies (unknown) (no (unknown) (unknown) Chief Complaint: (units (unknown) date) Fever unknown) (unknown) (no (unknown) (unknown) Clinical (units (unkno wn) date) Impression: unknown) (unknown) (no (unknown) (unknown) Const (units (unkno wn) date) unknown) (unknown) (no (unknown) (unknown) Constitutional (units (unknown) date) unknown) (unknown) (no (unknown) (unknown) Constitutional: (units (unknown) date) Reports chills, unknown) Denies fatigue, Reports fever(s), Denies (unknown) (no (unknown) (unknown) Cosign (units (unkno wn) date) unknown) (unknown) (no (unknown) (unknown) Course (units (unkno wn) date) unknown) (unknown) (no (unknown) (unknown) Covid-19 + FLU A/B (units (unknown) date) + RSV - PCR Stat unknown) (unknown) (no (unknown) (unknown) : 1975 (units (unknown) date) Acct:[id number] unknown) (unknown) (no (unknown) (unknown) Date of Service: (units (unknown) date) 07/20/22 unknown) (unknown) (no (unknown) (unknown) Denies frequent (units (unknown) date) falls, Denies loss unknown) of vision, Denies numbness, Denies tingling (unknown) (no (unknown) (unknown) Denies loss of (units (unknown) date) vision unknown) (unknown) (no (unknown) (unknown) Denies numbness (units (unknown) date) and Denies tingling unknown) (unknown) (no (unknown) (unknown) Denies wheezing (units (unknown) date) unknown) (unknown) (no (unknown) (unknown) Departure (units (unkn own) date) unknown) (unknown) (no (unknown) (unknown) Diabetes mellitus (units (unknown) date) unknown) (unknown) (no (unknown) (unknown) Discharge Plan (units (unknown) date) unknown) (unknown) (no (unknown) (unknown) Discontinued (units (u nknown) date) Medications unknown) (unknown) (no (unknown) (unknown) Documented By: RAFAEL (units (unknown) date) unknown) (unknown) (no (unknown) (unknown) Dr Ku Co-Sign (units (unknown) date) Statement: I was unknown) available for consultation during this (unknown) (no (unknown) (unknown) ED Attending (units (u nknown) date) Cosignature unknown) Attestation: (unknown) (no (unknown) (unknown) ED Orders (units (unkn own) date) unknown) (unknown) (no (unknown) (unknown) ENT (units (unkno wn) date) unknown) (unknown) (no (unknown) (unknown) ER Physician: (units ( unknown) date) Laz,Hyma P.A-C unknown) (unknown) (no (unknown) (unknown) Ears, Nose, Mouth, (units (unknown) date) and Throat: Denies unknown) change in voice, Denies dizziness, Denies (unknown) (no (unknown) (unknown) Ears:?hearing (units ( unknown) date) grossly normal unknown) bilaterally (unknown) (no (unknown) (unknown) Effort + (units (unkno wn) date) Inspection:?normal unknown) respiratory effort (unknown) (no (unknown) (unknown) Emergency Report (units (unknown) date) unknown) (unknown) (no (unknown) (unknown) Endocrine (units (unkn own) date) unknown) (unknown) (no (unknown) (unknown) Endocrine: Denies (units (unknown) date) fatigue, Denies unknown) flushing and Denies palpitations (unknown) (no (unknown) (unknown) Exam Narrative: (units (unknown) date) unknown) (unknown) (no (unknown) (unknown) Exam (units (unkno wn) date) unknown) (unknown) (no (unknown) (unknown) Eyes (units (unkno wn) date) unknown) (unknown) (no (unknown) (unknown) Eyes: Denies (units (u nknown) date) change in vision, unknown) Denies eye discharge, Denies irritation and (unknown) (no (unknown) (unknown) Face and (units (unkno wn) date) sinus:?normal unknown) facial exam and sinuses nontender (unknown) (no (unknown) (unknown) Family History (units (unknown) date) (Reviewed 07/20/22 unknown) @ 12:35 by Lexii Nesbitt PA-C) (unknown) (no (unknown) (unknown) Father (units (unknown) date) Suicide unknown) (unknown) (no (unknown) (unknown) Gastrointestinal (units (unknown) date) unknown) (unknown) (no (unknown) (unknown) Gastrointestinal: (units (unknown) date) Denies abdominal unknown) pain, Denies change in bowel habits, Denies (unknown) (no (unknown) (unknown) General (units (unkno wn) date) unknown) (unknown) (no (unknown) (unknown) General:?appearanc (units (unknown) date) e normal, both eyes unknown) and all related structures (unknown) (no (unknown) (unknown) General:?cooperati (units (unknown) date) ve, healthy unknown) appearing and comfortable (unknown) (no (unknown) (unknown) General:?patient (units (unknown) date) alert, patient unknown) awake and patient oriented x3 (unknown) (no (unknown) (unknown) Genitourinary (units ( unknown) date) unknown) (unknown) (no (unknown) (unknown) Genitourinary: (units (unknown) date) Denies hematuria, unknown) Denies flank pain, Denies urinary incontinence (unknown) (no (unknown) (unknown) HENMT (units (unkno wn) date) unknown) (unknown) (no (unknown) (unknown) HPI - Fever (units (un known) date) unknown) (unknown) (no (unknown) (unknown) HPI Narrative: (units (unknown) date) unknown) (unknown) (no (unknown) (unknown) Head:?normal to (units (unknown) date) inspection unknown) (unknown) (no (unknown) (unknown) Hematologic/Lympha (units (unknown) date) tic unknown) (unknown) (no (unknown) (unknown) Hematologic/Lympha (units (unknown) date) tic: Denies easy unknown) bruising (unknown) (no (unknown) (unknown) History of Present (units (unknown) date) Illness unknown) (unknown) (no (unknown) (unknown) History of (units (unk nown) date) cervical cerclage unknown) (unknown) (no (unknown) (unknown) History of (units (unk nown) date) stillbirth unknown) (unknown) (no (unknown) (unknown) History of (units (unk nown) date) unilateral unknown) oophorectomy (unknown) (no (unknown) (unknown) History of use of (units (unknown) date) contraceptive unknown) intrauterine device (IUD) (unknown) (no (unknown) (unknown) History of vaginal (units (unknown) date) delivery unknown) (unknown) (no (unknown) (unknown) Christiano Suárez, (units (unknown) date) [Primary Care unknown) Provider] (unknown) (no (unknown) (unknown) Hyperlipidemia (units (unknown) date) unknown) (unknown) (no (unknown) (unknown) Influenza A (units (un known) date) (RT-PCR) Flu a unknown) negative (NEGATIVE) (unknown) (no (unknown) (unknown) Influenza B (units (un known) date) (RT-PCR) Flu b unknown) negative (NEGATIVE) (unknown) (no (unknown) (unknown) Initial Vital (units ( unknown) date) Signs unknown) (unknown) (no (unknown) (unknown) Initial Vital (units ( unknown) date) Signs: unknown) (unknown) (no (unknown) (unknown) Instructions: DI (units (unknown) date) for Viral Upper unknown) Respiratory Infection -- Adult (unknown) (no (unknown) (unknown) Integumentary/[place] (units (unknown) date) sts unknown) (unknown) (no (unknown) (unknown) [facility] (units (unknown) date) [address] unknown) [place] [address] (unknown) (no (unknown) (unknown) Lab Data (units (unkno wn) date) unknown) (unknown) (no (unknown) (unknown) Lab Results (units (un known) date) unknown) (unknown) (no (unknown) (unknown) Labs: (units (unkno wn) date) unknown) (unknown) (no (unknown) (unknown) Last Admin: (units (un known) date) 07/20/22 09:44 unknown) Dose: 975 mg (unknown) (no (unknown) (unknown) MDM - Fever (units (un known) date) unknown) (unknown) (no (unknown) (unknown) MDM Narrative (units ( unknown) date) unknown) (unknown) (no (unknown) (unknown) Medical History (units (unknown) date) (Reviewed 07/20/22 unknown) @ 12:35 by Lexii Nesbitt PA-C) (unknown) (no (unknown) (unknown) Medical decision (units (unknown) date) making narrative: unknown) (unknown) (no (unknown) (unknown) Medical records (units (unknown) date) reviewed: Yes unknown) (unknown) (no (unknown) (unknown) Medication (units (unk nown) date) Instructions unknown) Recorded (unknown) (no (unknown) (unknown) Mode of arrival: (units (unknown) date) Ambulatory unknown) (unknown) (no (unknown) (unknown) Mother (units (unknown) date) Hypertension unknown) (unknown) (no (unknown) (unknown) Mouth:?oral (units (un known) date) mucosae normal unknown) (unknown) (no (unknown) (unknown) Musculoskeletal (units (unknown) date) unknown) (unknown) (no (unknown) (unknown) Musculoskeletal: (units (unknown) date) Denies back pain, unknown) Denies muscle weakness, Denies neck pain, (unknown) (no (unknown) (unknown) Narrative (units (unkn own) date) unknown) (unknown) (no (unknown) (unknown) Neck (units (unkno wn) date) unknown) (unknown) (no (unknown) (unknown) Neck:?normal (units (u nknown) date) visual inspection unknown) and no lymphadenopathy noted (unknown) (no (unknown) (unknown) Neuro (units (unkno wn) date) unknown) (unknown) (no (unknown) (unknown) Neurologic (units (unk nown) date) unknown) (unknown) (no (unknown) (unknown) Neurologic: Denies (units (unknown) date) behavioral changes, unknown) Denies confusion, Denies dizziness, (unknown) (no (unknown) (unknown) New (units (unkno wn) date) unknown) (unknown) (no (unknown) (unknown) Nose:?external (units (unknown) date) nose normal unknown) (unknown) (no (unknown) (unknown) Ordered: (units (unkno wn) date) unknown) (unknown) (no (unknown) (unknown) Orders (units (unkno wn) date) unknown) (unknown) (no (unknown) (unknown) Oxygen Delivery (units (unknown) date) Method 07/20/22 unknown) 09:34 (unknown) (no (unknown) (unknown) Oxygen Delivery (units (unknown) date) Method Room Air unknown) (unknown) (no (unknown) (unknown) Patient (units (unkno wn) date) Disposition: Home unknown) (unknown) (no (unknown) (unknown) Patient History (units (unknown) date) unknown) (unknown) (no (unknown) (unknown) Patient agrees to (units (unknown) date) follow-up with her unknown) PCP, agrees to return to the ED if she (unknown) (no (unknown) (unknown) Patient: (units (unkno wn) date) Jason Nam M unknown) MR#: M (unknown) (no (unknown) (unknown) Prescriptions: (units (unknown) date) unknown) (unknown) (no (unknown) (unknown) Previous Rx's (units ( unknown) date) unknown) (unknown) (no (unknown) (unknown) Psychiatric (units (un known) date) unknown) (unknown) (no (unknown) (unknown) Psychiatric: Denies (units (unknown) date) anxiety, Denies unknown) behavioral changes, Denies confusion, Denies (unknown) (no (unknown) (unknown) Pulse Oximetry 98 (units (unknown) date) 07/20/22 09:34 unknown) (unknown) (no (unknown) (unknown) Pulse Oximetry 98 (units (unknown) date) unknown) (unknown) (no (unknown) (unknown) Pulse Oximetry 99 (units (unknown) date) unknown) (unknown) (no (unknown) (unknown) Pulse Rate 70 (units ( unknown) date) unknown) (unknown) (no (unknown) (unknown) Pulse Rate 95 H (units (unknown) date) 07/20/22 09:34 unknown) (unknown) (no (unknown) (unknown) Pulse Rate 95 H (units (unknown) date) unknown) (unknown) (no (unknown) (unknown) ROS Unobtainable: (units (unknown) date) All systems unknown) reviewed + are unremarkable except as noted in HPI (unknown) (no (unknown) (unknown) RSV (PCR) Negative (units (unknown) date) (Negative) unknown) (unknown) (no (unknown) (unknown) Rate:?regular rate (units (unknown) date) unknown) (unknown) (no (unknown) (unknown) Referrals: (units (unk nown) date) unknown) (unknown) (no (unknown) (unknown) Related Data (units (u nknown) date) unknown) (unknown) (no (unknown) (unknown) Resp (units (unkno wn) date) unknown) (unknown) (no (unknown) (unknown) Respiratory Rate (units (unknown) date) 14 07/20/22 09:34 unknown) (unknown) (no (unknown) (unknown) Respiratory Rate (units (unknown) date) 14 unknown) (unknown) (no (unknown) (unknown) Respiratory Rate (units (unknown) date) 18 unknown) (unknown) (no (unknown) (unknown) Respiratory (units (un known) date) unknown) (unknown) (no (unknown) (unknown) Respiratory: (units (u nknown) date) Reports cough, unknown) Denies dyspnea, Denies dyspnea on exertion and (unknown) (no (unknown) (unknown) Review of Systems (units (unknown) date) unknown) (unknown) (no (unknown) (unknown) Rhythm:?regular (units (unknown) date) rhythm unknown) (unknown) (no (unknown) (unknown) SARS-CoV-2 (PCR) (units (unknown) date) Negative (Negative) unknown) (unknown) (no (unknown) (unknown) Signed By: (units (unk nown) date) unknown) (unknown) (no (unknown) (unknown) Skin/Breast: (units (u nknown) date) Denies pruritus, unknown) Denies erythema, Denies rash and Denies wounds (unknown) (no (unknown) (unknown) Smoking Status: (units (unknown) date) Never smoker unknown) (unknown) (no (unknown) (unknown) Social History (units (unknown) date) (Reviewed 07/20/22 unknown) @ 12:35 by Lexii Nesbitt PA-C) (unknown) (no (unknown) (unknown) Source: patient (units (unknown) date) unknown) (unknown) (no (unknown) (unknown) Stand Alone Forms: (units (unknown) date) Patient Portal/API unknown) (unknown) (no (unknown) (unknown) Stated Complaint: (units (unknown) date) cough unknown) T-21/fever/chest pain (unknown) (no (unknown) (unknown) Stop: 07/20/22 (units (unknown) date) 09:40 unknown) (unknown) (no (unknown) (unknown) Substance Use (units ( unknown) date) Type: does not use unknown) (unknown) (no (unknown) (unknown) Surgical History (units (unknown) date) (Reviewed 07/20/22 unknown) @ 12:35 by Lexii Nesbitt PA-C) (unknown) (no (unknown) (unknown) Temperature 101.5 (units (unknown) date) F H 07/20/22 09:34 unknown) (unknown) (no (unknown) (unknown) Temperature 101.5 (units (unknown) date) F H 101.5 F H 99.3 unknown) F (unknown) (no (unknown) (unknown) Temperature 99.3 F (units (unknown) date) unknown) (unknown) (no (unknown) (unknown) Throat:?posterior (units (unknown) date) oropharynx normal unknown) (unknown) (no (unknown) (unknown) Time Seen by (units (u nknown) date) Provider: 07/20/22 unknown) 11:56 (unknown) (no (unknown) (unknown) Vital Signs - 8 hr (units (unknown) date) unknown) (unknown) (no (unknown) (unknown) Vital Signs (units (un known) date) unknown) (unknown) (no (unknown) (unknown) Vital signs: (units (u nknown) date) unknown) (unknown) (no (unknown) (unknown) XR chest 2V Stat (units (unknown) date) unknown) (unknown) (no (unknown) (unknown) You were evaluated (units (unknown) date) in the ED today for unknown) a fever and a cough. You were negative (unknown) (no (unknown) (unknown) administrative (units (unknown) date) purposes only. I unknown) did not have direct contact with this patient (unknown) (no (unknown) (unknown) alcohol intake (units (unknown) date) frequency: unknown) holidays/special occasions only (unknown) (no (unknown) (unknown) alcohol intake: (units (unknown) date) current unknown) ('sometimes') (unknown) (no (unknown) (unknown) amoxicillin (units (un known) date) [AMOXICILLIN] unknown) Allergy Mild rash Verified 07/20/22 09:38 (unknown) (no (unknown) (unknown) and Denies (units (unk nown) date) orthopnea unknown) (unknown) (no (unknown) (unknown) and Denies urinary (units (unknown) date) urgency unknown) (unknown) (no (unknown) (unknown) and Denies (units (unk nown) date) weakness unknown) (unknown) (no (unknown) (unknown) and below (units (unkn own) date) unknown) (unknown) (no (unknown) (unknown) benzonatate 200 mg (units (unknown) date) capsule 200 mg PO unknown) TID PRN cough 10 days 07/20/22 (unknown) (no (unknown) (unknown) benzonatate 200 mg (units (unknown) date) capsule unknown) (unknown) (no (unknown) (unknown) depression, Denies (units (unknown) date) homicidal ideation unknown) and Denies suicidal ideation (unknown) (no (unknown) (unknown) diarrhea, Denies (units (unknown) date) nausea and Denies unknown) vomiting (unknown) (no (unknown) (unknown) dizziness, (units (unk nown) date) syncope. Patient is unknown) tolerating p.o. well. (unknown) (no (unknown) (unknown) during this visit. (units (unknown) date) They were seen unknown) independently by the [facility]. (unknown) (no (unknown) (unknown) experiences chest (units (unknown) date) pain, trouble unknown) breathing. (unknown) (no (unknown) (unknown) follow-up with (units (unknown) date) your PCP in a week. unknown) Return to the ED if you have any chest pain (unknown) (no (unknown) (unknown) for COVID-19, (units ( unknown) date) influenza, RSV. unknown) Your chest x-ray does not show a pneumonia. Your (unknown) (no (unknown) (unknown) frequent falls, (units (unknown) date) Denies lethargy and unknown) Denies weakness (unknown) (no (unknown) (unknown) hydration. You are (units (unknown) date) being prescribed unknown) Tessalon Perles for your cough. Please (unknown) (no (unknown) (unknown) lightheadedness, (units (unknown) date) Denies unknown) palpitations, Denies dyspnea, Denies dyspnea on exertion (unknown) (no (unknown) (unknown) neck pain, Denies (units (unknown) date) sore throat and unknown) Denies throat swelling (unknown) (no (unknown) (unknown) or trouble (units (unk nown) date) breathing. unknown) (unknown) (no (unknown) (unknown) patient's (units (unkn own) date) emergency unknown) department visit. This chart is signed by myself for (unknown) (no (unknown) (unknown) presentation to (units (unknown) date) the ED, was given unknown) Tylenol with successfully brought her (unknown) (no (unknown) (unknown) respiratory panel (units (unknown) date) which was negative unknown) for COVID, influenza, RSV. Obtained x-ray (unknown) (no (unknown) (unknown) sore throat, chest (units (unknown) date) pain, shortness of unknown) breath, nausea, vomiting, lightheadedness, (unknown) (no (unknown) (unknown) states she has (units (unknown) date) been intermittently unknown) coughing for the last 3 weeks, however star (unknown) (no (unknown) (unknown) substance use (units ( unknown) date) type: does not use unknown) (unknown) (no (unknown) (unknown) supportive (units (unk nown) date) measures with unknown) Tylenol, ibuprofen, Tessalon Perles, good hydration. (unknown) (no (unknown) (unknown) symptoms are (units (u nknown) date) likely due to a unknown) viral upper respiratory infection. You may treat (unknown) (no (unknown) (unknown) karis running a (units ( unknown) date) fever over the last unknown) couple of days. Patient denies rhinorrhea, (unknown) (no (unknown) (unknown) temperature down (units (unknown) date) to 99.3 F. unknown) discussed findings with patient, recommend (unknown) (no (unknown) (unknown) the fever and body (units (unknown) date) aches with Tylenol, unknown) ibuprofen. Please continue good (unknown) (no (unknown) (unknown) to a viral upper (units (unknown) date) respiratory unknown) infection. Patient was febrile to 101.5 F on (unknown) (no (unknown) (unknown) viral upper (units (un known) date) respiratory unknown) infection versus pneumonia versus other. Obtained (unknown) (no (unknown) (unknown) wheezing (units (unkno wn) date) unknown) (unknown) (no (unknown) (unknown) with no acute (units ( unknown) date) findings, negative unknown) for pneumonia. Patient's symptoms likely due Result panel 61 (unknown) (no (unknown) (unknown) (no value) (units (unk nown) date) unknown) (unknown) (no (unknown) (unknown) #30 caps (units (unkno wn) date) unknown) (unknown) (no (unknown) (unknown) [id number] (units (unkn own) date) unknown) (unknown) (no (unknown) (unknown) 200 mg PO TID (units ( unknown) date) PRN (Reason: unknown) cough) 10 Days Qty: 30 0RF (unknown) (no (unknown) (unknown) 47-year-old (units (un known) date) female unknown) (unknown) (no (unknown) (unknown) King Lawrence MD (units (unknown) date) [Primary Care unknown) Provider] (unknown) (no (unknown) (unknown) Abnormal Pap (units (u nknown) date) smear of cervix unknown) (unknown) (no (unknown) (unknown) Age/Sex: 47 / F (units (unknown) date) unknown) (unknown) (no (unknown) (unknown) Allergies (units (unkn own) date) unknown) (unknown) (no (unknown) (unknown) Allergy/AdvReac (units (unknown) date) Type Severity unknown) Reaction Status Date / Time (unknown) (no (unknown) (unknown) CVA (cerebral (units ( unknown) date) vascular unknown) accident) (unknown) (no (unknown) (unknown) : 1975 (units (unknown) date) Acct:[id number] unknown) (unknown) (no (unknown) (unknown) Date of Service: (units (unknown) date) 07/25/22 unknown) (unknown) (no (unknown) (unknown) Departure (units (unkn own) date) unknown) (unknown) (no (unknown) (unknown) Diabetes (units (unkno wn) date) mellitus unknown) (unknown) (no (unknown) (unknown) Discharge Plan (units (unknown) date) unknown) (unknown) (no (unknown) (unknown) ER Physician: (units ( unknown) date) Praveen Jung unknown) D.O. (unknown) (no (unknown) (unknown) Emergency Report (units (unknown) date) unknown) (unknown) (no (unknown) (unknown) Family History (units (unknown) date) (Reviewed unknown) 07/20/22 @ 12:35 by Lexii Nesbitt PA-C) (unknown) (no (unknown) (unknown) Father (units (unknown) date) Suicide unknown) (unknown) (no (unknown) (unknown) General (units (unkno wn) date) unknown) (unknown) (no (unknown) (unknown) HPI - General (units ( unknown) date) Adult unknown) (unknown) (no (unknown) (unknown) HPI narrative: (units (unknown) date) unknown) (unknown) (no (unknown) (unknown) History of (units (unk nown) date) Present Illness unknown) (unknown) (no (unknown) (unknown) History of (units (unk nown) date) cervical cerclage unknown) (unknown) (no (unknown) (unknown) History of (units (unk nown) date) stillbirth unknown) (unknown) (no (unknown) (unknown) History of (units (unk nown) date) unilateral unknown) oophorectomy (unknown) (no (unknown) (unknown) History of use (units (unknown) date) of contraceptive unknown) intrauterine device (IUD) (unknown) (no (unknown) (unknown) History of (units (unk nown) date) vaginal delivery unknown) (unknown) (no (unknown) (unknown) Hyperlipidemia (units (unknown) date) unknown) (unknown) (no (unknown) (unknown) [facility] (units (unknown) date) [address] unknown) [place] [address] (unknown) (no (unknown) (unknown) Medical History (units (unknown) date) (Reviewed unknown) 07/20/22 @ 12:35 by Lexii Nesbitt PA-C) (unknown) (no (unknown) (unknown) Medication (units (unk nown) date) Instructions unknown) Recorded (unknown) (no (unknown) (unknown) Mother (units (unknown) date) Hypertension unknown) (unknown) (no (unknown) (unknown) No Action (units (unkn own) date) unknown) (unknown) (no (unknown) (unknown) Patient History (units (unknown) date) unknown) (unknown) (no (unknown) (unknown) Patient: (units (unkno wn) date) Jason Nam M unknown) MR#: M (unknown) (no (unknown) (unknown) Prescriptions: (units (unknown) date) unknown) (unknown) (no (unknown) (unknown) Previous Rx's (units ( unknown) date) unknown) (unknown) (no (unknown) (unknown) Referrals: (units (unk nown) date) unknown) (unknown) (no (unknown) (unknown) Related Data (units (u nknown) date) unknown) (unknown) (no (unknown) (unknown) Signed By: (units (unk nown) date) unknown) (unknown) (no (unknown) (unknown) Smoking Status: (units (unknown) date) Never smoker unknown) (unknown) (no (unknown) (unknown) Social History (units (unknown) date) (Reviewed unknown) 07/20/22 @ 12:35 by Lexii Nesbitt PA-C) (unknown) (no (unknown) (unknown) Stated (units (unkno wn) date) complaint: weak, unknown) cough, chills (unknown) (no (unknown) (unknown) Substance Use (units ( unknown) date) Type: does not unknown) use (unknown) (no (unknown) (unknown) Surgical History (units (unknown) date) (Reviewed unknown) 07/20/22 @ 12:35 by Lexii Nesbitt PA-C) (unknown) (no (unknown) (unknown) Time Seen by (units (u nknown) date) Provider: unknown) 07/25/22 19:37 (unknown) (no (unknown) (unknown) alcohol intake (units (unknown) date) frequency: unknown) holidays/special occasions only (unknown) (no (unknown) (unknown) alcohol intake: (units (unknown) date) current unknown) ('sometimes') (unknown) (no (unknown) (unknown) amoxicillin (units (un known) date) [AMOXICILLIN] unknown) Allergy Mild rash Verified 07/20/22 09:38 (unknown) (no (unknown) (unknown) benzonatate 200 (units (unknown) date) mg capsule 200 mg unknown) PO TID PRN cough 10 days 07/20/22 (unknown) (no (unknown) (unknown) benzonatate 200 (units (unknown) date) mg capsule unknown) (unknown) (no (unknown) (unknown) substance use (units ( unknown) date) type: does not unknown) use Result panel 62 (unknown) (no date) (unknown) (unknown) 0 /ul (unkn own) (unknown) (no date) (unknown) (unknown) 0.4 % (unkn own) (unknown) (no date) (unknown) (unknown) 13.0 g/dl (unkn own) (unknown) (no date) (unknown) (unknown) 13.1 % (unkn own) (unknown) (no date) (unknown) (unknown) 1900 /ul (unkn own) (unknown) (no date) (unknown) (unknown) 200 /ul (unkn own) (unknown) (no date) (unknown) (unknown) 207 x10 3/ul (unkn own) (unknown) (no date) (unknown) (unknown) 3.5 % (unkn own) (unknown) (no date) (unknown) (unknown) 30.3 pg (unkn own) (unknown) (no date) (unknown) (unknown) 3000 /ul (unkn own) (unknown) (no date) (unknown) (unknown) 33.5 % (unkn own) (unknown) (no date) (unknown) (unknown) 34.2 % (unkn own) (unknown) (no date) (unknown) (unknown) 38.0 % (unkn own) (unknown) (no date) (unknown) (unknown) 4.29 x10 6/ul (unkn own) (unknown) (no date) (unknown) (unknown) 5.6 x10 3/ul (unkn own) (unknown) (no date) (unknown) (unknown) 500 /ul (unkn own) (unknown) (no date) (unknown) (unknown) 53.0 % (unkn own) (unknown) (no date) (unknown) (unknown) 88.5 fl (unkn own) (unknown) (no date) (unknown) (unknown) 9.6 % (unkn own) Result panel 63 (unknown) (no date) (unknown) (unknown) 794 ng/ml (unkn own) (unknown) (no date) (unknown) (unknown) 794 ng/ml (unkn own) Result panel 64 (unknown) (no date) (unknown) (unknown) 94 pg/ml (unkn own) (unknown) (no date) (unknown) (unknown) 94 pg/ml (unkn own) Result panel 65 (unknown) (no (unknown) (unknown) (no value) (units (unk nown) date) unknown) (unknown) (no (unknown) (unknown) 07/25/22 (units (unkno wn) date) unknown) (unknown) (no (unknown) (unknown) [address] [place] [address] (units (unknown) date) unknown) (unknown) (no (unknown) (unknown) Abdomen: (units (unkno wn) date) Visualized upper unknown) abdominal solid organs appear normal in the early (unknown) (no (unknown) (unknown) Accession Number: (units (unknown) date) [id number] unknown) (unknown) (no (unknown) (unknown) After the (units (unkn own) date) administration of unknown) intravenous contrast, 2 mm thick sections acquired (unknown) (no (unknown) (unknown) Age/Sex: 47 / F (units (unknown) date) Date of Service: unknown) (unknown) (no (unknown) (unknown) [place], [place] (units ( unknown) date) [id number] unknown) (unknown) (no (unknown) (unknown) Approved by: (units (u nknown) date) justin Farmer) Monica on 07/25/2022 at 21:23 (unknown) (no (unknown) (unknown) Bones and chest (units (unknown) date) wall: No unknown) suspicious bony lesions. Ribs and thoracic spine (unknown) (no (unknown) (unknown) COMPARISON: None. (units (unknown) date) unknown) (unknown) (no (unknown) (unknown) CT Scan Report (units (unknown) date) unknown) (unknown) (no (unknown) (unknown) : 1975 (units (unknown) date) Acct:[id number] unknown) (unknown) (no (unknown) (unknown) Dictated by: (units (u nknown) date) Hoang Louie unknown) Monica on 07/25/2022 at 21:20 (unknown) (no (unknown) (unknown) Esophagus is (units (u nknown) date) unknown) (unknown) (no (unknown) (unknown) FINDINGS: (units (unkn own) date) unknown) (unknown) (no (unknown) (unknown) For radiation (units ( unknown) date) dose reduction, unknown) the following was used: automated exposure (unknown) (no (unknown) (unknown) IMPRESSION: (units (un known) date) Left-sided patchy unknown) alveolitis pattern, potentially a manifestation (unknown) (no (unknown) (unknown) INDICATIONS: dry (units (unknown) date) cough, fatigue, unknown) critical dimer, SOB (unknown) (no (unknown) (unknown) Image quality: (units (unknown) date) Excellent. unknown) (unknown) (no (unknown) (unknown) [facility] (units (unknown) date) unknown) (unknown) (no (unknown) (unknown) Loc: ED (units (unkno wn) date) unknown) (unknown) (no (unknown) (unknown) Lungs and pleura: (units (unknown) date) Lungs are clear on unknown) the right but demonstrate a definite (unknown) (no (unknown) (unknown) [id number] (units (unk nown) date) unknown) (unknown) (no (unknown) (unknown) Mediastinum: (units (u nknown) date) Heart size is unknown) normal, without pericardial effusion. No (unknown) (no (unknown) (unknown) Ordering (units (unkno wn) date) Provider: unknown) Praveen Jung D.O. (unknown) (no (unknown) (unknown) PROCEDURE: CT (units ( unknown) date) ANGIO CHEST PE unknown) PROTOCOL (unknown) (no (unknown) (unknown) Patient: (units (unkno wn) date) Jason Nam M unknown) MR#: (unknown) (no (unknown) (unknown) Procedure: CT (units ( unknown) date) angio chest PE unknown) protocol (unknown) (no (unknown) (unknown) Pulmonary (units (unkn own) date) arteries: unknown) Pulmonary arteries are normal in size, and demonstrate no (unknown) (no (unknown) (unknown) Signed (units (unkno wn) date) unknown) (unknown) (no (unknown) (unknown) TECHNIQUE: (units (unk nown) date) unknown) (unknown) (no (unknown) (unknown) adjustment of mA (units (unknown) date) and/or kV unknown) according to patient size. (unknown) (no (unknown) (unknown) and (units (unkno wn) date) unknown) (unknown) (no (unknown) (unknown) appear intact (units ( unknown) date) unknown) (unknown) (no (unknown) (unknown) arterial (units (unkno wn) date) unknown) (unknown) (no (unknown) (unknown) atypical/viral (units (unknown) date) pneumonia. No unknown) pulmonary embolus is present. (unknown) (no (unknown) (unknown) control, (units (unkno wn) date) unknown) (unknown) (no (unknown) (unknown) from the (units (unkno wn) date) unknown) (unknown) (no (unknown) (unknown) hilar adenopathy. (units (unknown) date) Thoracic aorta is unknown) normal in caliber and enhancement. (unknown) (no (unknown) (unknown) intensity (units (unkn own) date) unknown) (unknown) (no (unknown) (unknown) intraluminal (units (u nknown) date) filling defects to unknown) suggest central pulmonary embolism. (unknown) (no (unknown) (unknown) left-sided (units (unk nown) date) alveolar unknown) infiltration pattern, involving the left upper and lower (unknown) (no (unknown) (unknown) lungs, mild (units (un known) date) unknown) (unknown) (no (unknown) (unknown) mediastinal or (units (unknown) date) unknown) (unknown) (no (unknown) (unknown) normal in (units (unkn own) date) caliber, without unknown) hiatal hernia. (unknown) (no (unknown) (unknown) of (units (unkno wn) date) unknown) (unknown) (no (unknown) (unknown) patchy (units (unkno wn) date) unknown) (unknown) (no (unknown) (unknown) peripheral (units (unk nown) date) airways are unknown) patent. (unknown) (no (unknown) (unknown) phase of (units (unkno wn) date) enhancement. unknown) (unknown) (no (unknown) (unknown) projection (MIP) (units (unknown) date) coronal and unknown) sagittal reformats were then acquired through the (unknown) (no (unknown) (unknown) pulmonary apices (units (unknown) date) to the posterior unknown) costophrenic angles. 3-dimensional maximum (unknown) (no (unknown) (unknown) supraclavicular (units (unknown) date) adenopathy. unknown) (unknown) (no (unknown) (unknown) thorax. (units (unkno wn) date) unknown) (unknown) (no (unknown) (unknown) throughout. (units (un known) date) Thyroid gland unknown) appears normal where well seen. No axillary or (unknown) (no (unknown) (unknown) to moderate in (units (unknown) date) overall severity. unknown) No pleural effusions or pneumothorax. Central Result panel 66 (unknown) (no date) (unknown) (unknown) 0.06 ng/ml (unkn own) (unknown) (no date) (unknown) (unknown) 0.06 ng/ml (unkn own) (unknown) (no date) (unknown) (unknown) 94 pg/ml (unkn own) (unknown) (no date) (unknown) (unknown) 94 pg/ml (unkn own) Result panel 67 (unknown) (no date) (unknown) (unknown) Detected (units (unkn own) unknown) (unknown) (no date) (unknown) (unknown) Not Detected (units ( unknown) unknown) (unknown) (no date) (unknown) (unknown) Not Detected (units ( unknown) unknown) Result panel 68 (unknown) (no (unknown) (unknown) (no value) (units (unk nown) date) unknown) (unknown) (no (unknown) (unknown) #30 caps (units (unkno wn) date) unknown) (unknown) (no (unknown) (unknown) *If you do not (units (unknown) date) have a primary unknown) care provider please contact the [facility] (unknown) (no (unknown) (unknown) *Please continue (units (unknown) date) to take your unknown) regular medications as directed. (unknown) (no (unknown) (unknown) *Please follow up (units (unknown) date) with your primary unknown) care provider in 2-3 days, call for an (unknown) (no (unknown) (unknown) *Return to (units (unk nown) date) Emergency unknown) Department if you should have any new, worsening or (unknown) (no (unknown) (unknown) *What to do: (units (u nknown) date) unknown) (unknown) (no (unknown) (unknown) *You have been (units (unknown) date) diagnosed with unknown) [atypical pneumonia. As we discussed your history (unknown) (no (unknown) (unknown) [id number] (units (unkn own) date) unknown) (unknown) (no (unknown) (unknown) 07/25/22 07/25/22 (units (unknown) date) 07/25/22 unknown) Range/Units (unknown) (no (unknown) (unknown) 07/25/22 19:47 (units (unknown) date) unknown) (unknown) (no (unknown) (unknown) 07/25/22 19:55 (units (unknown) date) unknown) (unknown) (no (unknown) (unknown) 07/25/22 20:44 (units (unknown) date) unknown) (unknown) (no (unknown) (unknown) 07/25/22 (units (unkno wn) date) Range/Units unknown) (unknown) (no (unknown) (unknown) 07/25/22 (units (unkno wn) date) unknown) (unknown) (no (unknown) (unknown) 100 mg PO BID (units ( unknown) date) Qty: 20 0RF unknown) (unknown) (no (unknown) (unknown) 19:43 07/25/22 (units (unknown) date) unknown) (unknown) (no (unknown) (unknown) 19:47 19:55 19:55 (units (unknown) date) unknown) (unknown) (no (unknown) (unknown) 19:55 (units (unkno wn) date) unknown) (unknown) (no (unknown) (unknown) 200 mg PO TID PRN (units (unknown) date) (Reason: cough) 10 unknown) Days Qty: 30 0RF (unknown) (no (unknown) (unknown) 21:31 07/25/22 (units (unknown) date) unknown) (unknown) (no (unknown) (unknown) 21:31 (units (unkno wn) date) unknown) (unknown) (no (unknown) (unknown) 47-year-old (units (un known) date) female nonsmoker unknown) (unknown) (no (unknown) (unknown) King Lawrecne MD (units (unknown) date) [Primary Care unknown) Provider] (unknown) (no (unknown) (unknown) Abnormal Pap (units (u nknown) date) smear of cervix unknown) (unknown) (no (unknown) (unknown) Activity (units (unkno wn) date) Restrictions/Addit unknown) ional Instructions: (unknown) (no (unknown) (unknown) Adenovirus (PCR) (units (unknown) date) (Not Detect) unknown) (unknown) (no (unknown) (unknown) Adenovirus (PCR) (units (unknown) date) Not detected (Not unknown) Detect) (unknown) (no (unknown) (unknown) Age/Sex: 47 / F (units (unknown) date) unknown) (unknown) (no (unknown) (unknown) Allergies (units (unkn own) date) unknown) (unknown) (no (unknown) (unknown) Allergy/AdvReac (units (unknown) date) Type Severity unknown) Reaction Status Date / Time (unknown) (no (unknown) (unknown) B. pertussis DNA (units (unknown) date) (PCR) (Not unknown) Detecte) (unknown) (no (unknown) (unknown) B. pertussis DNA (units (unknown) date) (PCR) Not detected unknown) (Not Detecte) (unknown) (no (unknown) (unknown) B.parapertussis (units (unknown) date) DNA PCR (Not unknown) Detecte) (unknown) (no (unknown) (unknown) B.parapertussis (units (unknown) date) DNA PCR Not unknown) detected (Not Detecte) (unknown) (no (unknown) (unknown) Baso # (Auto) (units ( unknown) date) (0-100) /uL unknown) (unknown) (no (unknown) (unknown) Baso # (Auto) 0 (units (unknown) date) (0-100) /uL unknown) (unknown) (no (unknown) (unknown) Baso % (Auto) (units ( unknown) date) (0-2) % unknown) (unknown) (no (unknown) (unknown) Baso % (Auto) 0.4 (units (unknown) date) (0-2) % unknown) (unknown) (no (unknown) (unknown) Bedside Urine (units ( unknown) date) Bilirubin - unknown) Negative (unknown) (no (unknown) (unknown) Bedside Urine (units ( unknown) date) Glucose Negative unknown) (unknown) (no (unknown) (unknown) Bedside Urine (units ( unknown) date) Ketone - Negative unknown) (unknown) (no (unknown) (unknown) Bedside Urine (units ( unknown) date) Leukocytes - unknown) Negative (unknown) (no (unknown) (unknown) Bedside Urine (units ( unknown) date) Nitrite - Negative unknown) (unknown) (no (unknown) (unknown) Bedside Urine (units ( unknown) date) Occult Blood - unknown) Negative (unknown) (no (unknown) (unknown) Bedside Urine (units ( unknown) date) Protein - Negative unknown) (unknown) (no (unknown) (unknown) Bedside Urine (units ( unknown) date) Urobilinogen - unknown) Negative (unknown) (no (unknown) (unknown) Bedside Urine pH (units (unknown) date) 7.0 unknown) (unknown) (no (unknown) (unknown) Blood Pressure (units (unknown) date) 179/104 H 03 unknown) 19:43 (unknown) (no (unknown) (unknown) Blood Pressure (units (unknown) date) 179/104 H 131/81 unknown) (unknown) (no (unknown) (unknown) CBC Auto Diff (units ( unknown) date) [Complete Blood unknown) Count AUTO DIFF] Stat (unknown) (no (unknown) (unknown) CT angio chest PE (units (unknown) date) protocol Stat unknown) (unknown) (no (unknown) (unknown) CVA (cerebral (units ( unknown) date) vascular accident) unknown) (unknown) (no (unknown) (unknown) Chief complaint: (units (unknown) date) Upper Respiratory unknown) Symptoms (unknown) (no (unknown) (unknown) Chlamy pneumoniae (units (unknown) date) PCR (Not Detect) unknown) (unknown) (no (unknown) (unknown) Chlamy pneumoniae (units (unknown) date) PCR Not detected unknown) (Not Detect) (unknown) (no (unknown) (unknown) Clinical (units (unkno wn) date) Impression: unknown) (unknown) (no (unknown) (unknown) Coronavirus 229E (units (unknown) date) (PCR) (Not Detect) unknown) (unknown) (no (unknown) (unknown) Coronavirus 229E (units (unknown) date) (PCR) Not detected unknown) (Not Detect) (unknown) (no (unknown) (unknown) Coronavirus HKU1 (units (unknown) date) (PCR) (Not Detect) unknown) (unknown) (no (unknown) (unknown) Coronavirus HKU1 (units (unknown) date) (PCR) Not detected unknown) (Not Detect) (unknown) (no (unknown) (unknown) Coronavirus NL63 (units (unknown) date) (PCR) (Not Detect) unknown) (unknown) (no (unknown) (unknown) Coronavirus NL63 (units (unknown) date) (PCR) Not detected unknown) (Not Detect) (unknown) (no (unknown) (unknown) Coronavirus OC43 (units (unknown) date) (PCR) (Not Detect) unknown) (unknown) (no (unknown) (unknown) Coronavirus OC43 (units (unknown) date) (PCR) Not detected unknown) (Not Detect) (unknown) (no (unknown) (unknown) Course (units (unkno wn) date) unknown) (unknown) (no (unknown) (unknown) D Dimer Stat (units (u nknown) date) unknown) (unknown) (no (unknown) (unknown) D-Dimer (<500) (units (unknown) date) ng/ml unknown) (unknown) (no (unknown) (unknown) D-Dimer 794 H (units ( unknown) date) (<500) ng/ml unknown) (unknown) (no (unknown) (unknown) : 1975 (units (unknown) date) Acct:[id number] unknown) (unknown) (no (unknown) (unknown) Date of Service: (units (unknown) date) 07/25/22 unknown) (unknown) (no (unknown) (unknown) Departure (units (unkn own) date) unknown) (unknown) (no (unknown) (unknown) Diabetes mellitus (units (unknown) date) unknown) (unknown) (no (unknown) (unknown) Discharge Plan (units (unknown) date) unknown) (unknown) (no (unknown) (unknown) Discontinued (units (u nknown) date) Medications unknown) (unknown) (no (unknown) (unknown) Documented By: NR (units (unknown) date) unknown) (unknown) (no (unknown) (unknown) Doxycycline (units (un known) date) Hyclate unknown) (Doxycycline Hyclate 100 Mg Tablet) 100 mg PO NOW ONE (unknown) (no (unknown) (unknown) ED Orders (units (unkn own) date) unknown) (unknown) (no (unknown) (unknown) ER Physician: (units ( unknown) date) Praveen Jung D.O. unknown) (unknown) (no (unknown) (unknown) Emergency Report (units (unknown) date) unknown) (unknown) (no (unknown) (unknown) Entero/Rhino (units (u nknown) date) (PCR) (Not Detect) unknown) (unknown) (no (unknown) (unknown) Entero/Rhino (units (u nknown) date) (PCR) Not detected unknown) (Not Detect) (unknown) (no (unknown) (unknown) Eos # (Auto) (units (u nknown) date) (0-450) /uL unknown) (unknown) (no (unknown) (unknown) Eos # (Auto) 200 (units (unknown) date) (0-450) /uL unknown) (unknown) (no (unknown) (unknown) Eos % (Auto) (units (u nknown) date) (2-4) % unknown) (unknown) (no (unknown) (unknown) Eos % (Auto) 3.5 (units (unknown) date) (2-4) % unknown) (unknown) (no (unknown) (unknown) Esterase (units (unkno wn) date) unknown) (unknown) (no (unknown) (unknown) Exam (units (unkno wn) date) unknown) (unknown) (no (unknown) (unknown) Family History (units (unknown) date) (Reviewed 07/20/22 unknown) @ 12:35 by Lexii Nesbitt PA-C) (unknown) (no (unknown) (unknown) Father (units (unknown) date) Suicide unknown) (unknown) (no (unknown) (unknown) General (units (unkno wn) date) unknown) (unknown) (no (unknown) (unknown) HPI - General (units ( unknown) date) Adult unknown) (unknown) (no (unknown) (unknown) HPI narrative: (units (unknown) date) unknown) (unknown) (no (unknown) (unknown) Hct (36-46) % (units ( unknown) date) unknown) (unknown) (no (unknown) (unknown) Hct 38.0 (36-46) (units (unknown) date) % unknown) (unknown) (no (unknown) (unknown) Hgb (12.0-16.0) (units (unknown) date) g/dL unknown) (unknown) (no (unknown) (unknown) Hgb 13.0 (units (unkno wn) date) (12.0-16.0) g/dL unknown) (unknown) (no (unknown) (unknown) History of (units (unk nown) date) Present Illness unknown) (unknown) (no (unknown) (unknown) History of (units (unk nown) date) cervical cerclage unknown) (unknown) (no (unknown) (unknown) History of (units (unk nown) date) stillbirth unknown) (unknown) (no (unknown) (unknown) History of (units (unk nown) date) unilateral unknown) oophorectomy (unknown) (no (unknown) (unknown) History of use of (units (unknown) date) contraceptive unknown) intrauterine device (IUD) (unknown) (no (unknown) (unknown) History of (units (unk nown) date) vaginal delivery unknown) (unknown) (no (unknown) (unknown) Human (units (unkno wn) date) Metapneumovir PCR unknown) (Not Detect) (unknown) (no (unknown) (unknown) Human (units (unkno wn) date) Metapneumovir PCR unknown) Detected H (Not Detect) (unknown) (no (unknown) (unknown) Human (units (unkno wn) date) metapneumovirus unknown) pneumonia, Atypical pneumonia (unknown) (no (unknown) (unknown) Hyperlipidemia (units (unknown) date) unknown) (unknown) (no (unknown) (unknown) Influenza Type A (units (unknown) date) (PCR) (Not Detect) unknown) (unknown) (no (unknown) (unknown) Influenza Type A (units (unknown) date) (PCR) Not detected unknown) (Not Detect) (unknown) (no (unknown) (unknown) Influenza Type B (units (unknown) date) (PCR) (Not Detect) unknown) (unknown) (no (unknown) (unknown) Influenza Type B (units (unknown) date) (PCR) Not detected unknown) (Not Detect) (unknown) (no (unknown) (unknown) Initial Vital (units ( unknown) date) Signs unknown) (unknown) (no (unknown) (unknown) Initial Vital (units ( unknown) date) Signs: unknown) (unknown) (no (unknown) (unknown) Instructions: DI (units (unknown) date) for Atypical unknown) Pneumonia (unknown) (no (unknown) (unknown) [facility] (units (unknown) date) [address] unknown) [place] [address] (unknown) (no (unknown) (unknown) Lab Data (units (unkno wn) date) unknown) (unknown) (no (unknown) (unknown) Lab Results (units (un known) date) unknown) (unknown) (no (unknown) (unknown) Labs: (units (unkno wn) date) unknown) (unknown) (no (unknown) (unknown) Last Admin: (units (un known) date) 07/25/22 21:44 unknown) Dose: 100 mg (unknown) (no (unknown) (unknown) Lymph # (Auto) (units (unknown) date) (4211-8689) /uL unknown) (unknown) (no (unknown) (unknown) Lymph # (Auto) (units (unknown) date) 1900 (0125-0970) unknown) /uL (unknown) (no (unknown) (unknown) Lymph % (Auto) (units (unknown) date) (25-40) % unknown) (unknown) (no (unknown) (unknown) Lymph % (Auto) (units (unknown) date) 33.5 (25-40) % unknown) (unknown) (no (unknown) (unknown) M. pneumoniae (units ( unknown) date) (PCR) (Not Detect) unknown) (unknown) (no (unknown) (unknown) M. pneumoniae (units ( unknown) date) (PCR) Not detected unknown) (Not Detect) (unknown) (no (unknown) (unknown) MCH (26-34) PG (units (unknown) date) unknown) (unknown) (no (unknown) (unknown) MCH 30.3 (26-34) (units (unknown) date) PG unknown) (unknown) (no (unknown) (unknown) MCHC (30-36) % (units (unknown) date) unknown) (unknown) (no (unknown) (unknown) MCHC 34.2 (30-36) (units (unknown) date) % unknown) (unknown) (no (unknown) (unknown) MCV (80-100) fL (units (unknown) date) unknown) (unknown) (no (unknown) (unknown) MCV 88.5 (80-100) (units (unknown) date) fL unknown) (unknown) (no (unknown) (unknown) Medical Decision (units (unknown) date) Making unknown) (unknown) (no (unknown) (unknown) Medical History (units (unknown) date) (Reviewed 07/20/22 unknown) @ 12:35 by Lexii Nesbitt PA-C) (unknown) (no (unknown) (unknown) Medication (units (unk nown) date) Instructions unknown) Recorded (unknown) (no (unknown) (unknown) [place] # (Auto) (units ( unknown) date) (0-900) /uL unknown) (unknown) (no (unknown) (unknown) [place] # (Auto) 500 (units (unknown) date) (0-900) /uL unknown) (unknown) (no (unknown) (unknown) [place] % (Auto) (units ( unknown) date) (3-14) % unknown) (unknown) (no (unknown) (unknown) [place] % (Auto) 9.6 (units (unknown) date) (3-14) % unknown) (unknown) (no (unknown) (unknown) Mother (units (unknown) date) Hypertension unknown) (unknown) (no (unknown) (unknown) NT-Pro-B (units (unkno wn) date) Natriuret Pep unknown) (<125) pg/mL (unknown) (no (unknown) (unknown) NT-Pro-B (units (unkno wn) date) Natriuret Pep 94 unknown) (<125) pg/mL (unknown) (no (unknown) (unknown) NT-proBNP (units (unkn own) date) (BNP-Adult 18+) unknown) Stat (unknown) (no (unknown) (unknown) Neut # (Auto) (units ( unknown) date) (0837-6798) /uL unknown) (unknown) (no (unknown) (unknown) Neut # (Auto) (units ( unknown) date) 3000 (3500-3457) unknown) /uL (unknown) (no (unknown) (unknown) Neut % (Auto) (units ( unknown) date) (50-75) % unknown) (unknown) (no (unknown) (unknown) Neut % (Auto) (units ( unknown) date) 53.0 (50-75) % unknown) (unknown) (no (unknown) (unknown) New (units (unkno wn) date) unknown) (unknown) (no (unknown) (unknown) No Action (units (unkn own) date) unknown) (unknown) (no (unknown) (unknown) Ordered: (units (unkno wn) date) unknown) (unknown) (no (unknown) (unknown) Orders (units (unkno wn) date) unknown) (unknown) (no (unknown) (unknown) Oxygen Delivery (units (unknown) date) Method Room Air unknown) 07/25/22 19:43 (unknown) (no (unknown) (unknown) Oxygen Delivery (units (unknown) date) Method Room Air unknown) Room Air (unknown) (no (unknown) (unknown) Parainfluenza 1 (units (unknown) date) (PCR) (Not Detect) unknown) (unknown) (no (unknown) (unknown) Parainfluenza 1 (units (unknown) date) (PCR) Not detected unknown) (Not Detect) (unknown) (no (unknown) (unknown) Parainfluenza 2 (units (unknown) date) (PCR) (Not Detect) unknown) (unknown) (no (unknown) (unknown) Parainfluenza 2 (units (unknown) date) (PCR) Not detected unknown) (Not Detect) (unknown) (no (unknown) (unknown) Parainfluenza 3 (units (unknown) date) (PCR) (Not Detect) unknown) (unknown) (no (unknown) (unknown) Parainfluenza 3 (units (unknown) date) (PCR) Not detected unknown) (Not Detect) (unknown) (no (unknown) (unknown) Parainfluenza 4 (units (unknown) date) (PCR) (Not Detect) unknown) (unknown) (no (unknown) (unknown) Parainfluenza 4 (units (unknown) date) (PCR) Not detected unknown) (Not Detect) (unknown) (no (unknown) (unknown) Patient (units (unkno wn) date) Disposition: Home unknown) (unknown) (no (unknown) (unknown) Patient History (units (unknown) date) unknown) (unknown) (no (unknown) (unknown) Patient: (units (unkno wn) date) Jason Nam M unknown) MR#: M (unknown) (no (unknown) (unknown) Plt Count (units (unkn own) date) (150-400) X103/uL unknown) (unknown) (no (unknown) (unknown) Plt Count 207 (units ( unknown) date) (150-400) X103/uL unknown) (unknown) (no (unknown) (unknown) Point of care (units ( unknown) date) testing: unknown) (unknown) (no (unknown) (unknown) Prescriptions: (units (unknown) date) unknown) (unknown) (no (unknown) (unknown) Previous Rx's (units ( unknown) date) unknown) (unknown) (no (unknown) (unknown) Procalcitonin (units ( unknown) date) (<0.5) ng/mL unknown) (unknown) (no (unknown) (unknown) Procalcitonin (units ( unknown) date) 0.06 (<0.5) ng/mL unknown) (unknown) (no (unknown) (unknown) Procalcitonin (units ( unknown) date) Stat unknown) (unknown) (no (unknown) (unknown) Pulse Oximetry 98 (units (unknown) date) 07/25/22 19:43 unknown) (unknown) (no (unknown) (unknown) Pulse Oximetry 98 (units (unknown) date) 99 unknown) (unknown) (no (unknown) (unknown) Pulse Rate 87 (units ( unknown) date) 07/25/22 19:43 unknown) (unknown) (no (unknown) (unknown) Pulse Rate 87 75 (units (unknown) date) unknown) (unknown) (no (unknown) (unknown) RBC (4.0-5.2) (units ( unknown) date) X106/uL unknown) (unknown) (no (unknown) (unknown) RBC 4.29 (units (unkno wn) date) (4.0-5.2) X106/uL unknown) (unknown) (no (unknown) (unknown) RDW (11.6-14.8) % (units (unknown) date) unknown) (unknown) (no (unknown) (unknown) RDW 13.1 (units (unkno wn) date) (11.6-14.8) % unknown) (unknown) (no (unknown) (unknown) RSV (PCR) (Not (units (unknown) date) Detect) unknown) (unknown) (no (unknown) (unknown) RSV (PCR) Not (units ( unknown) date) detected (Not unknown) Detect) (unknown) (no (unknown) (unknown) Referrals: (units (unk nown) date) unknown) (unknown) (no (unknown) (unknown) Related Data (units (u nknown) date) unknown) (unknown) (no (unknown) (unknown) Resource line at (units (unknown) date) [phone]. They unknown) will ask some questions about your medical (unknown) (no (unknown) (unknown) Respiratory Panel (units (unknown) date) (Film Array) Stat unknown) (unknown) (no (unknown) (unknown) Respiratory Rate (units (unknown) date) 18 07/25/22 19:43 unknown) (unknown) (no (unknown) (unknown) Respiratory Rate (units (unknown) date) 18 unknown) (unknown) (no (unknown) (unknown) SARS-CoV-2 (PCR) (units (unknown) date) (Not Detecte) unknown) (unknown) (no (unknown) (unknown) SARS-CoV-2 (PCR) (units (unknown) date) Not detected (Not unknown) Detecte) (unknown) (no (unknown) (unknown) Signed By: (units (unk nown) date) unknown) (unknown) (no (unknown) (unknown) Smoking Status: (units (unknown) date) Never smoker unknown) (unknown) (no (unknown) (unknown) Social History (units (unknown) date) (Reviewed 07/20/22 unknown) @ 12:35 by Lexii Nesbitt PA-C) (unknown) (no (unknown) (unknown) Stand Alone (units (un known) date) Forms: Patient unknown) Portal/API, Work Release Note (unknown) (no (unknown) (unknown) Stated complaint: (units (unknown) date) weak, cough, unknown) chills (unknown) (no (unknown) (unknown) Stop: 07/25/22 (units (unknown) date) 21:38 unknown) (unknown) (no (unknown) (unknown) Substance Use (units ( unknown) date) Type: does not use unknown) (unknown) (no (unknown) (unknown) Surgical History (units (unknown) date) (Reviewed 07/20/22 unknown) @ 12:35 by Lexii eNsbitt PA-C) (unknown) (no (unknown) (unknown) Temperature 98.6 (units (unknown) date) F 07/25/22 19:43 unknown) (unknown) (no (unknown) (unknown) Temperature 98.6 (units (unknown) date) F unknown) (unknown) (no (unknown) (unknown) Time Seen by (units (u nknown) date) Provider: 07/25/22 unknown) 19:37 (unknown) (no (unknown) (unknown) Urine Dip (units (unkn own) date) unknown) (unknown) (no (unknown) (unknown) Urine Specific (units (unknown) date) [place] 1.015 unknown) (unknown) (no (unknown) (unknown) Vital Signs - 8 (units (unknown) date) hr unknown) (unknown) (no (unknown) (unknown) Vital Signs (units (un known) date) unknown) (unknown) (no (unknown) (unknown) Vital signs: (units (u nknown) date) unknown) (unknown) (no (unknown) (unknown) WBC (4.5-11.0) (units (unknown) date) X103/uL unknown) (unknown) (no (unknown) (unknown) WBC 5.6 (units (unkno wn) date) (4.5-11.0) X103/uL unknown) (unknown) (no (unknown) (unknown) [ ] New (units (unkno wn) date) medication written unknown) as a paper prescription (unknown) (no (unknown) (unknown) [ ] No new (units (unk nown) date) medications given unknown) (unknown) (no (unknown) (unknown) [Embedded Image (units (unknown) date) Not Available] unknown) (unknown) (no (unknown) (unknown) [x ] New (units (unkno wn) date) medication unknown) prescriptions sent to your pharmacy: [ [facility]] (unknown) (no (unknown) (unknown) alcohol intake (units (unknown) date) frequency: unknown) holidays/special occasions only (unknown) (no (unknown) (unknown) alcohol intake: (units (unknown) date) current unknown) ('sometimes') (unknown) (no (unknown) (unknown) amoxicillin (units (un known) date) [AMOXICILLIN] unknown) Allergy Mild rash Verified 07/20/22 09:38 (unknown) (no (unknown) (unknown) and physical exam (units (unknown) date) are reassuring, unknown) the respiratory swab noted a virus called (unknown) (no (unknown) (unknown) appointment. Let (units (unknown) date) them know you were unknown) seen in the Emergency Department and that we (unknown) (no (unknown) (unknown) ask that you be (units (unknown) date) seen in follow up. unknown) We will electronically transmit a record of (unknown) (no (unknown) (unknown) benzonatate 200 (units (unknown) date) mg capsule 200 mg unknown) PO TID PRN cough 10 days 07/20/22 (unknown) (no (unknown) (unknown) benzonatate 200 (units (unknown) date) mg capsule unknown) (unknown) (no (unknown) (unknown) concerning (units (unk nown) date) symptoms, such as unknown) [fever greater than 101 F, shaking chills, (unknown) (no (unknown) (unknown) doxycycline (units (un known) date) hyclate 100 mg unknown) tablet 100 mg PO BID #20 tabs 07/25/22 (unknown) (no (unknown) (unknown) doxycycline (units (un known) date) hyclate 100 mg unknown) tablet (unknown) (no (unknown) (unknown) history and help (units (unknown) date) get you set up unknown) with a doctor in the community. (unknown) (no (unknown) (unknown) human (units (unkno wn) date) metapneumovirus, unknown) the chest x-ray suggests the possibility of an atypical (unknown) (no (unknown) (unknown) pneumonia, hence (units (unknown) date) our decision to unknown) initiate antibiotics] (unknown) (no (unknown) (unknown) substance use (units ( unknown) date) type: does not use unknown) (unknown) (no (unknown) (unknown) today's note if (units (unknown) date) your PCP is in our unknown) system (unknown) (no (unknown) (unknown) worsening pain, (units (unknown) date) persistent unknown) vomiting or other bothersome symptoms] Result panel 69 (unknown) (no (unknown) (unknown) (no value) (units (unk nown) date) unknown) (unknown) (no (unknown) (unknown) #30 caps (units (unkno wn) date) unknown) (unknown) (no (unknown) (unknown) <Electronically (units (unknown) date) signed by Praveen unknown) Jake Jung> (unknown) (no (unknown) (unknown) *If you do not (units (unknown) date) have a primary unknown) care provider please contact the [facility] (unknown) (no (unknown) (unknown) *Please continue (units (unknown) date) to take your unknown) regular medications as directed. (unknown) (no (unknown) (unknown) *Please follow up (units (unknown) date) with your primary unknown) care provider in 2-3 days, call for an (unknown) (no (unknown) (unknown) *Return to (units (unk nown) date) Emergency unknown) Department if you should have any new, worsening or (unknown) (no (unknown) (unknown) *What to do: (units (u nknown) date) unknown) (unknown) (no (unknown) (unknown) *You have been (units (unknown) date) diagnosed with unknown) [atypical pneumonia. As we discussed your history (unknown) (no (unknown) (unknown) [id number] (units (unkn own) date) unknown) (unknown) (no (unknown) (unknown) 07/25/22 07/25/22 (units (unknown) date) 07/25/22 unknown) Range/Units (unknown) (no (unknown) (unknown) 07/25/22 19:47 (units (unknown) date) unknown) (unknown) (no (unknown) (unknown) 07/25/22 19:55 (units (unknown) date) unknown) (unknown) (no (unknown) (unknown) 07/25/22 20:44 (units (unknown) date) unknown) (unknown) (no (unknown) (unknown) 07/25/22 2243 (units ( unknown) date) unknown) (unknown) (no (unknown) (unknown) 07/25/22 (units (unkno wn) date) Range/Units unknown) (unknown) (no (unknown) (unknown) 07/25/22 (units (unkno wn) date) unknown) (unknown) (no (unknown) (unknown) 100 mg PO BID (units ( unknown) date) Qty: 20 0RF unknown) (unknown) (no (unknown) (unknown) 12 point review (units (unknown) date) of systems is unknown) negative except for those stated above (unknown) (no (unknown) (unknown) 19:43 07/25/22 (units (unknown) date) unknown) (unknown) (no (unknown) (unknown) 19:47 19:55 19:55 (units (unknown) date) unknown) (unknown) (no (unknown) (unknown) 19:55 (units (unkno wn) date) unknown) (unknown) (no (unknown) (unknown) 200 mg PO TID PRN (units (unknown) date) (Reason: cough) 10 unknown) Days Qty: 30 0RF (unknown) (no (unknown) (unknown) 21:31 07/25/22 (units (unknown) date) unknown) (unknown) (no (unknown) (unknown) 21:31 (units (unkno wn) date) unknown) (unknown) (no (unknown) (unknown) 47-year-old (units (un known) date) female nonsmoker unknown) presents with various upper respiratory symptoms (unknown) (no (unknown) (unknown) King Lawrence MD (units (unknown) date) [Primary Care unknown) Provider] (unknown) (no (unknown) (unknown) Abnormal Pap (units (u nknown) date) smear of cervix unknown) (unknown) (no (unknown) (unknown) Activity (units (unkno wn) date) Restrictions/Addit unknown) ional Instructions: (unknown) (no (unknown) (unknown) Additional (units (unk nown) date) Information: unknown) (unknown) (no (unknown) (unknown) Adenovirus (PCR) (units (unknown) date) (Not Detect) unknown) (unknown) (no (unknown) (unknown) Adenovirus (PCR) (units (unknown) date) Not detected (Not unknown) Detect) (unknown) (no (unknown) (unknown) Age/Sex: 47 / F (units (unknown) date) unknown) (unknown) (no (unknown) (unknown) Allergies (units (unkn own) date) unknown) (unknown) (no (unknown) (unknown) Allergy/AdvReac (units (unknown) date) Type Severity unknown) Reaction Status Date / Time (unknown) (no (unknown) (unknown) B. pertussis DNA (units (unknown) date) (PCR) (Not unknown) Detecte) (unknown) (no (unknown) (unknown) B. pertussis DNA (units (unknown) date) (PCR) Not detected unknown) (Not Detecte) (unknown) (no (unknown) (unknown) B.parapertussis (units (unknown) date) DNA PCR (Not unknown) Detecte) (unknown) (no (unknown) (unknown) B.parapertussis (units (unknown) date) DNA PCR Not unknown) detected (Not Detecte) (unknown) (no (unknown) (unknown) BACK: Nontender (units (unknown) date) without deformity unknown) or crepitance. No flank tenderness. (unknown) (no (unknown) (unknown) Baso # (Auto) (units ( unknown) date) (0-100) /uL unknown) (unknown) (no (unknown) (unknown) Baso # (Auto) 0 (units (unknown) date) (0-100) /uL unknown) (unknown) (no (unknown) (unknown) Baso % (Auto) (units ( unknown) date) (0-2) % unknown) (unknown) (no (unknown) (unknown) Baso % (Auto) 0.4 (units (unknown) date) (0-2) % unknown) (unknown) (no (unknown) (unknown) Bedside Urine (units ( unknown) date) Bilirubin - unknown) Negative (unknown) (no (unknown) (unknown) Bedside Urine (units ( unknown) date) Glucose Negative unknown) (unknown) (no (unknown) (unknown) Bedside Urine (units ( unknown) date) Ketone - Negative unknown) (unknown) (no (unknown) (unknown) Bedside Urine (units ( unknown) date) Leukocytes - unknown) Negative (unknown) (no (unknown) (unknown) Bedside Urine (units ( unknown) date) Nitrite - Negative unknown) (unknown) (no (unknown) (unknown) Bedside Urine (units ( unknown) date) Occult Blood - unknown) Negative (unknown) (no (unknown) (unknown) Bedside Urine (units ( unknown) date) Protein - Negative unknown) (unknown) (no (unknown) (unknown) Bedside Urine (units ( unknown) date) Urobilinogen - unknown) Negative (unknown) (no (unknown) (unknown) Bedside Urine pH (units (unknown) date) 7.0 unknown) (unknown) (no (unknown) (unknown) Blood Pressure (units (unknown) date) 179/104 H 07/25/22 unknown) 19:43 (unknown) (no (unknown) (unknown) Blood Pressure (units (unknown) date) 179/104 H 131/81 unknown) (unknown) (no (unknown) (unknown) CARDIOVASCULAR: (units (unknown) date) Denies chest pain, unknown) palpitations, orthopnea, edema, (unknown) (no (unknown) (unknown) CARDIOVASCULAR: (units (unknown) date) Regular rate and unknown) rhythm without murmurs, gallops, or rubs. (unknown) (no (unknown) (unknown) CBC Auto Diff (units ( unknown) date) [Complete Blood unknown) Count AUTO DIFF] Stat (unknown) (no (unknown) (unknown) CC: 47-year-old (units (unknown) date) female with upper unknown) respiratory symptoms and dry cough (unknown) (no (unknown) (unknown) CT angio chest PE (units (unknown) date) protocol Stat unknown) (unknown) (no (unknown) (unknown) CVA (cerebral (units ( unknown) date) vascular accident) unknown) (unknown) (no (unknown) (unknown) Chief complaint: (units (unknown) date) Upper Respiratory unknown) Symptoms (unknown) (no (unknown) (unknown) Chlamy pneumoniae (units (unknown) date) PCR (Not Detect) unknown) (unknown) (no (unknown) (unknown) Chlamy pneumoniae (units (unknown) date) PCR Not detected unknown) (Not Detect) (unknown) (no (unknown) (unknown) Clinical (units (unkno wn) date) Impression: unknown) (unknown) (no (unknown) (unknown) Complicating (units (u nknown) date) co-morbidities: unknown) Repeat visit (unknown) (no (unknown) (unknown) Coronavirus 229E (units (unknown) date) (PCR) (Not Detect) unknown) (unknown) (no (unknown) (unknown) Coronavirus 229E (units (unknown) date) (PCR) Not detected unknown) (Not Detect) (unknown) (no (unknown) (unknown) Coronavirus HKU1 (units (unknown) date) (PCR) (Not Detect) unknown) (unknown) (no (unknown) (unknown) Coronavirus HKU1 (units (unknown) date) (PCR) Not detected unknown) (Not Detect) (unknown) (no (unknown) (unknown) Coronavirus NL63 (units (unknown) date) (PCR) (Not Detect) unknown) (unknown) (no (unknown) (unknown) Coronavirus NL63 (units (unknown) date) (PCR) Not detected unknown) (Not Detect) (unknown) (no (unknown) (unknown) Coronavirus OC43 (units (unknown) date) (PCR) (Not Detect) unknown) (unknown) (no (unknown) (unknown) Coronavirus OC43 (units (unknown) date) (PCR) Not detected unknown) (Not Detect) (unknown) (no (unknown) (unknown) Course (units (unkno wn) date) unknown) (unknown) (no (unknown) (unknown) D Dimer Stat (units (u nknown) date) unknown) (unknown) (no (unknown) (unknown) D-Dimer (<500) (units (unknown) date) ng/ml unknown) (unknown) (no (unknown) (unknown) D-Dimer 794 H (units ( unknown) date) (<500) ng/ml unknown) (unknown) (no (unknown) (unknown) D-dimer a CT (units (u nknown) date) angiogram was unknown) performed which showed no pulmonary embolism, but (unknown) (no (unknown) (unknown) : 1975 (units (unknown) date) Acct:[id number] unknown) (unknown) (no (unknown) (unknown) Data collected (units (unknown) date) from: Patient unknown) (unknown) (no (unknown) (unknown) Date of Service: (units (unknown) date) 07/25/22 unknown) (unknown) (no (unknown) (unknown) Departure (units (unkn own) date) unknown) (unknown) (no (unknown) (unknown) Diabetes mellitus (units (unknown) date) unknown) (unknown) (no (unknown) (unknown) Differential (units (u nknown) date) considered, but unknown) not limited to: Flu, COVID, RSV, other viral upper (unknown) (no (unknown) (unknown) Discharge Plan (units (unknown) date) unknown) (unknown) (no (unknown) (unknown) Discontinued (units (u nknown) date) Medications unknown) (unknown) (no (unknown) (unknown) Discussion: (units (un known) date) Patient with unknown) multiple upper respiratory symptoms including nasal (unknown) (no (unknown) (unknown) Disposition: see (units (unknown) date) below, along with unknown) detailed discharge instructions that have (unknown) (no (unknown) (unknown) Documented By: NR (units (unknown) date) unknown) (unknown) (no (unknown) (unknown) Doxycycline (units (un known) date) Hyclate unknown) (Doxycycline Hyclate 100 Mg Tablet) 100 mg PO NOW ONE (unknown) (no (unknown) (unknown) ED Orders (units (unkn own) date) unknown) (unknown) (no (unknown) (unknown) ENT: Moist mucous (units (unknown) date) membranes. Clear unknown) nasal drainage bilaterally Nose without (unknown) (no (unknown) (unknown) ER Physician: (units ( unknown) date) Praveen Jung D.O. unknown) (unknown) (no (unknown) (unknown) EXTREMITIES: No (units (unknown) date) edema or joint unknown) tenderness. (unknown) (no (unknown) (unknown) EYES: Pupils (units (u nknown) date) equal round and unknown) reactive. Extraocular motions intact. No scleral (unknown) (no (unknown) (unknown) Emergency Report (units (unknown) date) unknown) (unknown) (no (unknown) (unknown) Entero/Rhino (units (u nknown) date) (PCR) (Not Detect) unknown) (unknown) (no (unknown) (unknown) Entero/Rhino (units (u nknown) date) (PCR) Not detected unknown) (Not Detect) (unknown) (no (unknown) (unknown) Eos # (Auto) (units (u nknown) date) (0-450) /uL unknown) (unknown) (no (unknown) (unknown) Eos # (Auto) 200 (units (unknown) date) (0-450) /uL unknown) (unknown) (no (unknown) (unknown) Eos % (Auto) (units (u nknown) date) (2-4) % unknown) (unknown) (no (unknown) (unknown) Eos % (Auto) 3.5 (units (unknown) date) (2-4) % unknown) (unknown) (no (unknown) (unknown) Esterase (units (unkno wn) date) unknown) (unknown) (no (unknown) (unknown) Exam Narrative: (units (unknown) date) unknown) (unknown) (no (unknown) (unknown) Exam documented (units (unknown) date) above, pertinent unknown) findings include: Well-hydrated, no (unknown) (no (unknown) (unknown) Exam (units (unkno wn) date) unknown) (unknown) (no (unknown) (unknown) Family History (units (unknown) date) (Reviewed 07/25/22 unknown) @ 22:38 by Praveen Jung DO) (unknown) (no (unknown) (unknown) Father (units (unknown) date) Suicide unknown) (unknown) (no (unknown) (unknown) GASTROINTESTINAL: (units (unknown) date) Abdomen soft, unknown) non-tender, nondistended. (unknown) (no (unknown) (unknown) GASTROINTESTINAL: (units (unknown) date) Denies nausea, unknown) vomiting, abdominal pain, diarrhea, (unknown) (no (unknown) (unknown) GENERAL: 47[] (units ( unknown) date) year old patient unknown) appears stated age. Well-developed patient, in (unknown) (no (unknown) (unknown) GENERAL: See HPI (units (unknown) date) unknown) (unknown) (no (unknown) (unknown) : Denies (units (unk nown) date) dysuria, unknown) frequency, incontinence, hematuria, urinary retention. (unknown) (no (unknown) (unknown) General (units (unkno wn) date) unknown) (unknown) (no (unknown) (unknown) HEAD: Atraumatic. (units (unknown) date) Normocephalic. unknown) (unknown) (no (unknown) (unknown) HEENT: See HPI (units (unknown) date) unknown) (unknown) (no (unknown) (unknown) HPI - General (units ( unknown) date) Adult unknown) (unknown) (no (unknown) (unknown) HPI narrative: (units (unknown) date) unknown) (unknown) (no (unknown) (unknown) Hct (36-46) % (units ( unknown) date) unknown) (unknown) (no (unknown) (unknown) Hct 38.0 (36-46) (units (unknown) date) % unknown) (unknown) (no (unknown) (unknown) Hgb (12.0-16.0) (units (unknown) date) g/dL unknown) (unknown) (no (unknown) (unknown) Hgb 13.0 (units (unkno wn) date) (12.0-16.0) g/dL unknown) (unknown) (no (unknown) (unknown) History of (units (unk nown) date) Present Illness unknown) (unknown) (no (unknown) (unknown) History of (units (unk nown) date) cervical cerclage unknown) (unknown) (no (unknown) (unknown) History of (units (unk nown) date) stillbirth unknown) (unknown) (no (unknown) (unknown) History of (units (unk nown) date) unilateral unknown) oophorectomy (unknown) (no (unknown) (unknown) History of use of (units (unknown) date) contraceptive unknown) intrauterine device (IUD) (unknown) (no (unknown) (unknown) History of (units (unk nown) date) vaginal delivery unknown) (unknown) (no (unknown) (unknown) Human (units (unkno wn) date) Metapneumovir PCR unknown) (Not Detect) (unknown) (no (unknown) (unknown) Human (units (unkno wn) date) Metapneumovir PCR unknown) Detected H (Not Detect) (unknown) (no (unknown) (unknown) Human (units (unkno wn) date) metapneumovirus unknown) pneumonia, Atypical pneumonia (unknown) (no (unknown) (unknown) Hyperlipidemia (units (unknown) date) unknown) (unknown) (no (unknown) (unknown) Imaging studies (units (unknown) date) independently unknown) reviewed: CTA demonstrates possible atypical (unknown) (no (unknown) (unknown) Importance of (units ( unknown) date) close follow-up unknown) related to patient as well as the details of (unknown) (no (unknown) (unknown) Independently (units ( unknown) date) reviewed EKG as unknown) above (unknown) (no (unknown) (unknown) Influenza Type A (units (unknown) date) (PCR) (Not Detect) unknown) (unknown) (no (unknown) (unknown) Influenza Type A (units (unknown) date) (PCR) Not detected unknown) (Not Detect) (unknown) (no (unknown) (unknown) Influenza Type B (units (unknown) date) (PCR) (Not Detect) unknown) (unknown) (no (unknown) (unknown) Influenza Type B (units (unknown) date) (PCR) Not detected unknown) (Not Detect) (unknown) (no (unknown) (unknown) Initial Vital (units ( unknown) date) Signs unknown) (unknown) (no (unknown) (unknown) Initial Vital (units ( unknown) date) Signs: unknown) (unknown) (no (unknown) (unknown) Instructions: DI (units (unknown) date) for Atypical unknown) Pneumonia (unknown) (no (unknown) (unknown) [facility] (units (unknown) date) [address] unknown) [place] [address] (unknown) (no (unknown) (unknown) It is noted that (units (unknown) date) deep breath does unknown) occasionally illicit a dry cough. No obvious (unknown) (no (unknown) (unknown) Lab Data (units (unkno wn) date) unknown) (unknown) (no (unknown) (unknown) Lab Results (units (un known) date) unknown) (unknown) (no (unknown) (unknown) Lab Test results (units (unknown) date) independently unknown) reviewed as above. Pertinent findings: (unknown) (no (unknown) (unknown) Labs: (units (unkno wn) date) unknown) (unknown) (no (unknown) (unknown) Last Admin: (units (un known) date) 07/25/22 21:44 unknown) Dose: 100 mg (unknown) (no (unknown) (unknown) Lymph # (Auto) (units (unknown) date) (3272-9800) /uL unknown) (unknown) (no (unknown) (unknown) Lymph # (Auto) (units (unknown) date) 1900 (4399-4620) unknown) /uL (unknown) (no (unknown) (unknown) Lymph % (Auto) (units (unknown) date) (25-40) % unknown) (unknown) (no (unknown) (unknown) Lymph % (Auto) (units (unknown) date) 33.5 (25-40) % unknown) (unknown) (no (unknown) (unknown) M. pneumoniae (units ( unknown) date) (PCR) (Not Detect) unknown) (unknown) (no (unknown) (unknown) M. pneumoniae (units ( unknown) date) (PCR) Not detected unknown) (Not Detect) (unknown) (no (unknown) (unknown) MCH (26-34) PG (units (unknown) date) unknown) (unknown) (no (unknown) (unknown) MCH 30.3 (26-34) (units (unknown) date) PG unknown) (unknown) (no (unknown) (unknown) MCHC (30-36) % (units (unknown) date) unknown) (unknown) (no (unknown) (unknown) MCHC 34.2 (30-36) (units (unknown) date) % unknown) (unknown) (no (unknown) (unknown) MCV (80-100) fL (units (unknown) date) unknown) (unknown) (no (unknown) (unknown) MCV 88.5 (80-100) (units (unknown) date) fL unknown) (unknown) (no (unknown) (unknown) MDM Narrative (units ( unknown) date) unknown) (unknown) (no (unknown) (unknown) MUSCULOSKELETAL: (units (unknown) date) denies weakness, unknown) joint pain, or bony pain (unknown) (no (unknown) (unknown) Medical Decision (units (unknown) date) Making unknown) (unknown) (no (unknown) (unknown) Medical History (units (unknown) date) (Reviewed 07/25/22 unknown) @ 22:38 by Praveen Jung DO) (unknown) (no (unknown) (unknown) Medical records (units (unknown) date) reviewed: Prior unknown) notes reviewed in our EMR (unknown) (no (unknown) (unknown) Medication (units (unk nown) date) Instructions unknown) Recorded (unknown) (no (unknown) (unknown) [place] # (Auto) (units ( unknown) date) (0-900) /uL unknown) (unknown) (no (unknown) (unknown) [place] # (Auto) 500 (units (unknown) date) (0-900) /uL unknown) (unknown) (no (unknown) (unknown) [place] % (Auto) (units ( unknown) date) (3-14) % unknown) (unknown) (no (unknown) (unknown) [place] % (Auto) 9.6 (units (unknown) date) (3-14) % unknown) (unknown) (no (unknown) (unknown) Mother (units (unknown) date) Hypertension unknown) (unknown) (no (unknown) (unknown) NECK: Trachea (units ( unknown) date) midline. Non unknown) tender (unknown) (no (unknown) (unknown) NEURO: AOx3. (units (u nknown) date) unknown) (unknown) (no (unknown) (unknown) NEUROLOGIC: (units (un known) date) Denies weakness, unknown) headache, numbness, change in speech, confusion, (unknown) (no (unknown) (unknown) NT-Pro-B (units (unkno wn) date) Natriuret Pep unknown) (<125) pg/mL (unknown) (no (unknown) (unknown) NT-Pro-B (units (unkno wn) date) Natriuret Pep 94 unknown) (<125) pg/mL (unknown) (no (unknown) (unknown) NT-proBNP (units (unkn own) date) (BNP-Adult 18+) unknown) Stat (unknown) (no (unknown) (unknown) Narrative (units (unkn own) date) unknown) (unknown) (no (unknown) (unknown) Narrative: (units (unk nown) date) unknown) (unknown) (no (unknown) (unknown) Neut # (Auto) (units ( unknown) date) (1039-6894) /uL unknown) (unknown) (no (unknown) (unknown) Neut # (Auto) (units ( unknown) date) 3000 (0022-9225) unknown) /uL (unknown) (no (unknown) (unknown) Neut % (Auto) (units ( unknown) date) (50-75) % unknown) (unknown) (no (unknown) (unknown) Neut % (Auto) (units ( unknown) date) 53.0 (50-75) % unknown) (unknown) (no (unknown) (unknown) New (units (unkno wn) date) unknown) (unknown) (no (unknown) (unknown) No Action (units (unkn own) date) unknown) (unknown) (no (unknown) (unknown) Ordered: (units (unkno wn) date) unknown) (unknown) (no (unknown) (unknown) Orders (units (unkno wn) date) unknown) (unknown) (no (unknown) (unknown) Oxygen Delivery (units (unknown) date) Method Room Air unknown) 07/25/22 19:43 (unknown) (no (unknown) (unknown) Oxygen Delivery (units (unknown) date) Method Room Air unknown) Room Air (unknown) (no (unknown) (unknown) PSYCHIATRIC: No (units (unknown) date) concerning unknown) psychosocial issues. (unknown) (no (unknown) (unknown) Parainfluenza 1 (units (unknown) date) (PCR) (Not Detect) unknown) (unknown) (no (unknown) (unknown) Parainfluenza 1 (units (unknown) date) (PCR) Not detected unknown) (Not Detect) (unknown) (no (unknown) (unknown) Parainfluenza 2 (units (unknown) date) (PCR) (Not Detect) unknown) (unknown) (no (unknown) (unknown) Parainfluenza 2 (units (unknown) date) (PCR) Not detected unknown) (Not Detect) (unknown) (no (unknown) (unknown) Parainfluenza 3 (units (unknown) date) (PCR) (Not Detect) unknown) (unknown) (no (unknown) (unknown) Parainfluenza 3 (units (unknown) date) (PCR) Not detected unknown) (Not Detect) (unknown) (no (unknown) (unknown) Parainfluenza 4 (units (unknown) date) (PCR) (Not Detect) unknown) (unknown) (no (unknown) (unknown) Parainfluenza 4 (units (unknown) date) (PCR) Not detected unknown) (Not Detect) (unknown) (no (unknown) (unknown) Patient (units (unkno wn) date) Disposition: Home unknown) (unknown) (no (unknown) (unknown) Patient History (units (unknown) date) unknown) (unknown) (no (unknown) (unknown) Patient: (units (unkno wn) date) Jason Nam M unknown) MR#: M (unknown) (no (unknown) (unknown) Plt Count (units (unkn own) date) (150-400) X103/uL unknown) (unknown) (no (unknown) (unknown) Plt Count 207 (units ( unknown) date) (150-400) X103/uL unknown) (unknown) (no (unknown) (unknown) Point of care (units ( unknown) date) testing: unknown) (unknown) (no (unknown) (unknown) Prescriptions: (units (unknown) date) unknown) (unknown) (no (unknown) (unknown) Previous Rx's (units ( unknown) date) unknown) (unknown) (no (unknown) (unknown) Procalcitonin (units ( unknown) date) (<0.5) ng/mL unknown) (unknown) (no (unknown) (unknown) Procalcitonin (units ( unknown) date) 0.06 (<0.5) ng/mL unknown) (unknown) (no (unknown) (unknown) Procalcitonin (units ( unknown) date) Stat unknown) (unknown) (no (unknown) (unknown) Pulse Oximetry 98 (units (unknown) date) 07/25/22 19:43 unknown) (unknown) (no (unknown) (unknown) Pulse Oximetry 98 (units (unknown) date) 99 unknown) (unknown) (no (unknown) (unknown) Pulse Rate 87 (units ( unknown) date) 07/25/22 19:43 unknown) (unknown) (no (unknown) (unknown) Pulse Rate 87 75 (units (unknown) date) unknown) (unknown) (no (unknown) (unknown) RBC (4.0-5.2) (units ( unknown) date) X106/uL unknown) (unknown) (no (unknown) (unknown) RBC 4.29 (units (unkno wn) date) (4.0-5.2) X106/uL unknown) (unknown) (no (unknown) (unknown) RDW (11.6-14.8) % (units (unknown) date) unknown) (unknown) (no (unknown) (unknown) RDW 13.1 (units (unkno wn) date) (11.6-14.8) % unknown) (unknown) (no (unknown) (unknown) RESPIRATORY: (units (u nknown) date) Lungs clear, no unknown) use of accessory muscles, tachypnea or hypoxemia. (unknown) (no (unknown) (unknown) RESPIRATORY: See (units (unknown) date) HPI unknown) (unknown) (no (unknown) (unknown) RSV (PCR) (Not (units (unknown) date) Detect) unknown) (unknown) (no (unknown) (unknown) RSV (PCR) Not (units ( unknown) date) detected (Not unknown) Detect) (unknown) (no (unknown) (unknown) Referrals: (units (unk nown) date) unknown) (unknown) (no (unknown) (unknown) Related Data (units (u nknown) date) unknown) (unknown) (no (unknown) (unknown) Resource line at (units (unknown) date) [phone]. They unknown) will ask some questions about your medical (unknown) (no (unknown) (unknown) Respiratory Panel (units (unknown) date) (Film Array) Stat unknown) (unknown) (no (unknown) (unknown) Respiratory Rate (units (unknown) date) 18 07/25/22 19:43 unknown) (unknown) (no (unknown) (unknown) Respiratory Rate (units (unknown) date) 18 unknown) (unknown) (no (unknown) (unknown) Respiratory panel (units (unknown) date) significant for unknown) human metapneumovirus. Lab work demonstrates (unknown) (no (unknown) (unknown) Review of Systems (units (unknown) date) unknown) (unknown) (no (unknown) (unknown) SARS-CoV-2 (PCR) (units (unknown) date) (Not Detecte) unknown) (unknown) (no (unknown) (unknown) SARS-CoV-2 (PCR) (units (unknown) date) Not detected (Not unknown) Detecte) (unknown) (no (unknown) (unknown) SKIN: Denies (units (u nknown) date) rash, skin unknown) lesions, or other (unknown) (no (unknown) (unknown) SKIN: No rash or (units (unknown) date) erythema of unknown) visible areas (unknown) (no (unknown) (unknown) Signed By: (units (unk nown) date) unknown) (unknown) (no (unknown) (unknown) Smoking Status: (units (unknown) date) Never smoker unknown) (unknown) (no (unknown) (unknown) Social History (units (unknown) date) (Reviewed 07/25/22 unknown) @ 22:38 by Praveen Jung DO) (unknown) (no (unknown) (unknown) Stand Alone (units (un known) date) Forms: Patient unknown) Portal/API, Work Release Note (unknown) (no (unknown) (unknown) Stated complaint: (units (unknown) date) weak, cough, unknown) chills (unknown) (no (unknown) (unknown) Stop: 07/25/22 (units (unknown) date) 21:38 unknown) (unknown) (no (unknown) (unknown) Substance Use (units ( unknown) date) Type: does not use unknown) (unknown) (no (unknown) (unknown) Surgical History (units (unknown) date) (Reviewed 07/25/22 unknown) @ 22:38 by Praveen Jung DO) (unknown) (no (unknown) (unknown) Temperature 98.6 (units (unknown) date) F 07/25/22 19:43 unknown) (unknown) (no (unknown) (unknown) Temperature 98.6 (units (unknown) date) F unknown) (unknown) (no (unknown) (unknown) Time Seen by (units (u nknown) date) Provider: 07/25/22 unknown) 19:37 (unknown) (no (unknown) (unknown) Urine Dip (units (unkn own) date) unknown) (unknown) (no (unknown) (unknown) Urine Specific (units (unknown) date) [place] 1.015 unknown) (unknown) (no (unknown) (unknown) Vital Signs - 8 (units (unknown) date) hr unknown) (unknown) (no (unknown) (unknown) Vital Signs (units (un known) date) unknown) (unknown) (no (unknown) (unknown) Vital signs: (units (u nknown) date) unknown) (unknown) (no (unknown) (unknown) WBC (4.5-11.0) (units (unknown) date) X103/uL unknown) (unknown) (no (unknown) (unknown) WBC 5.6 (units (unkno wn) date) (4.5-11.0) X103/uL unknown) (unknown) (no (unknown) (unknown) [ ] New (units (unkno wn) date) medication written unknown) as a paper prescription (unknown) (no (unknown) (unknown) [ ] No new (units (unk nown) date) medications given unknown) (unknown) (no (unknown) (unknown) [Embedded Image (units (unknown) date) Not Available] unknown) (unknown) (no (unknown) (unknown) [x ] New (units (unkno wn) date) medication unknown) prescriptions sent to your pharmacy: [ [facility]] (unknown) (no (unknown) (unknown) aches. She feels (units (unknown) date) generally unknown) fatigued. She does not have any significant (unknown) (no (unknown) (unknown) additional (units (unk nown) date) outpatient follow unknown) up (unknown) (no (unknown) (unknown) advanced imaging (units (unknown) date) in the form of a unknown) CT angiogram is performed (unknown) (no (unknown) (unknown) alcohol intake (units (unknown) date) frequency: unknown) holidays/special occasions only (unknown) (no (unknown) (unknown) alcohol intake: (units (unknown) date) current unknown) ('sometimes') (unknown) (no (unknown) (unknown) amoxicillin (units (un known) date) [AMOXICILLIN] unknown) Allergy Mild rash Verified 07/20/22 09:38 (unknown) (no (unknown) (unknown) and physical exam (units (unknown) date) are reassuring, unknown) the respiratory swab noted a virus called (unknown) (no (unknown) (unknown) appointment. Let (units (unknown) date) them know you were unknown) seen in the Emergency Department and that we (unknown) (no (unknown) (unknown) ask that you be (units (unknown) date) seen in follow up. unknown) We will electronically transmit a record of (unknown) (no (unknown) (unknown) been reviewed (units ( unknown) date) with patient as unknown) well as indications for ED re-evaluation and (unknown) (no (unknown) (unknown) benzonatate 200 (units (unknown) date) mg capsule 200 mg unknown) PO TID PRN cough 10 days 07/20/22 (unknown) (no (unknown) (unknown) benzonatate 200 (units (unknown) date) mg capsule unknown) (unknown) (no (unknown) (unknown) bleeding, (units (unkn own) date) purulent drainage. unknown) Throat without erythema, tonsillar hypertrophy or (unknown) (no (unknown) (unknown) cancer or lower (units (unknown) date) extremity pain unknown) (unknown) (no (unknown) (unknown) concerning (units (unk nown) date) symptoms, such as unknown) [fever greater than 101 F, shaking chills, (unknown) (no (unknown) (unknown) congestion, runny (units (unknown) date) nose, sore throat unknown) and dry cough as well as fatigue returns (unknown) (no (unknown) (unknown) constipation, (units ( unknown) date) melena. unknown) (unknown) (no (unknown) (unknown) cutoff and given (units (unknown) date) her otherwise unknown) unexplained dry cough and shortness of breath (unknown) (no (unknown) (unknown) does suggest the (units (unknown) date) possibility of an unknown) atypical pneumonia. As we are about 7 days (unknown) (no (unknown) (unknown) doxycycline (units (un known) date) hyclate 100 mg unknown) tablet 100 mg PO BID #20 tabs 07/25/22 (unknown) (no (unknown) (unknown) doxycycline (units (un known) date) hyclate 100 mg unknown) tablet (unknown) (no (unknown) (unknown) earlier in the (units ( unknown) date) week and had unknown) evaluation including chest x-ray which was clear and (unknown) (no (unknown) (unknown) emergency (units (unkno wn) date) department with unknown) remainder prescription sent to her pharmacy of choice. (unknown) (no (unknown) (unknown) exudate. Airway (units (unknown) date) patent. unknown) (unknown) (no (unknown) (unknown) has reassuring (units (unknown) date) vital signs and is unknown) in no obvious respiratory distress. Given (unknown) (no (unknown) (unknown) history and help (units (unknown) date) get you set up unknown) with a doctor in the community. (unknown) (no (unknown) (unknown) human (units (unkno wn) date) metapneumovirus, unknown) the chest x-ray suggests the possibility of an atypical (unknown) (no (unknown) (unknown) icterus. No (units (un known) date) injection or unknown) drainage. (unknown) (no (unknown) (unknown) including nasal (units (unknown) date) congestion, runny unknown) nose, sore throat, dry hacking cough and body (unknown) (no (unknown) (unknown) into symptoms (units ( unknown) date) without unknown) improvement and these findings on imaging we did discuss (unknown) (no (unknown) (unknown) involved workup, (units (unknown) date) a full respiratory unknown) panel and labs were ordered. Her symptoms (unknown) (no (unknown) (unknown) it is a (units (unkno wn) date) reasonable unknown) treatment option. Patient is given 1st dose here in the (unknown) (no (unknown) (unknown) lack of (units (unkno wn) date) improvement we unknown) discussed the utility of performing a slightly more (unknown) (no (unknown) (unknown) mild distress. (units (unknown) date) GCS 15 unknown) (unknown) (no (unknown) (unknown) no significant (units (unknown) date) leukocytosis or unknown) left shift. D-dimer is above the age corrected (unknown) (no (unknown) (unknown) pneumonia, hence (units (unknown) date) our decision to unknown) initiate antibiotics] (unknown) (no (unknown) (unknown) pneumonia, no (units ( unknown) date) pulmonary embolism unknown) (unknown) (no (unknown) (unknown) quad respiratory (units (unknown) date) panel negative. unknown) She was sent home with diagnosis of viral (unknown) (no (unknown) (unknown) questions (units (unkn own) date) answered to her unknown) apparent satisfaction (unknown) (no (unknown) (unknown) recent travel, (units (unknown) date) injury or history unknown) of blood clot. She denies any history of (unknown) (no (unknown) (unknown) respiratory (units (un known) date) infection, unknown) pulmonary embolism, pneumonia, CHF versus other (unknown) (no (unknown) (unknown) return (units (unkno wn) date) precautions. She unknown) understands and agrees with diagnosis and plan has had (unknown) (no (unknown) (unknown) returns because (units (unknown) date) she isn't feeling unknown) any better. Admittedly she does not feel (unknown) (no (unknown) (unknown) seizures, (units (unkn own) date) incoordination. unknown) (unknown) (no (unknown) (unknown) shortness of (units (u nknown) date) breath and denies unknown) nausea, vomiting or diarrhea. She was here (unknown) (no (unknown) (unknown) significant work (units (unknown) date) of breathing or unknown) hypoxemia, no tachycardia or tachypnea (unknown) (no (unknown) (unknown) substance use (units ( unknown) date) type: does not use unknown) (unknown) (no (unknown) (unknown) surely could be (units (unknown) date) completely unknown) explained by human metapneumovirus but given elevated (unknown) (no (unknown) (unknown) the utility of (units ( unknown) date) antibiotics to unknown) cover atypical pneumonia and sure the opinion that (unknown) (no (unknown) (unknown) today's note if (units (unknown) date) your PCP is in our unknown) system (unknown) (no (unknown) (unknown) upper respiratory (units (unknown) date) infection, given a unknown) prescription for Tessalon Perles and (unknown) (no (unknown) (unknown) wheezes, rales or (units (unknown) date) rhonchi unknown) (unknown) (no (unknown) (unknown) with persistent (units (unknown) date) symptoms after unknown) reassuring evaluation earlier in the week. She (unknown) (no (unknown) (unknown) worse but is (units (u nknown) date) concerned that unknown) something else may be going on. She denies any (unknown) (no (unknown) (unknown) worsening pain, (units (unknown) date) persistent unknown) vomiting or other bothersome symptoms] Social History date description facility 2022-07-20 00:00 Never smoked tobacco (finding) [facility] 2022-07-25 00:00 Never smoked tobacco (finding) [facility] Vital Signs date measurement value units 2022-07-20 00:00 BMI 24.5 kg/m2 2022-07-20 00:00 BP_diastolic 70 mmHg 2022-07-20 00:00 BP_systolic 122 mmHg 2022-07-20 00:00 heart_rate 70 /min 2022-07-20 00:00 height_metric 167.64 cm 2022-07-20 00:00 height_standard 66 in 2022-07-20 00:00 o2_saturation 99 % 2022-07-20 00:00 respiration_rate 18 /min 2022-07-20 00:00 temperature_metric 37.39 C 2022-07-20 00:00 temperature_standard 99.3 F 2022-07-20 00:00 weight_metric 68.94 kg 2022-07-20 00:00 weight_standard 151.99 lb 2022-07-25 00:00 BMI 8.4 kg/m2 2022-07-25 00:00 BP_diastolic 81 mmHg 2022-07-25 00:00 BP_systolic 131 mmHg 2022-07-25 00:00 heart_rate 75 /min 2022-07-25 00:00 height_metric 167.64 cm 2022-07-25 00:00 height_standard 66 in 2022-07-25 00:00 o2_saturation 99 % 2022-07-25 00:00 respiration_rate 18 /min 2022-07-25 00:00 temperature_metric 37 C 2022-07-25 00:00 temperature_standard 98.6 F 2022-07-25 00:00 weight_metric 23.58 kg 2022-07-25 00:00 weight_standard 51.99 lb
[2022-07-26] MEDS ORDERED: iohexoL-300 100 ML VIAL IVP ONE (09:46)
--- NOTE | 2022-07-26 10:13 | CT Report ---
PROCEDURE: ANGIO CHEST W/WO INDICATIONS: Chest pain, pe protocol CONTRAST: 80ml omni 300 TECHNIQUE: After the administration of intravenous contrast, 2 mm axial images were acquired from the pulmonary apices to the posterior costophrenic angles during the arterial phase. In addition, 1 mm lung kernel and 5 mm soft tissue kernel reconstructions were performed. 3-dimensional coronal oblique maximum int ensity projection (MIP) reformats, 8 mm axial MIP, and 5 mm coronal and sagittal MPR reformats were t hen performed through the thorax. For radiation dose reduction, the following was used: automated exp osure control, adjustment of mA and/or kV according to patient size. COMPARISON: Chest radiograph 07/20/2022 FINDINGS: Image quality: Excellent. Pulmonary arteries: Pulmonary arteries are normal in size, and demonstrate no intraluminal filling d efects to suggest central pulmonary embolism. Lungs and pleura: Nodular groundglass opacities are seen in the central left lower lobe and the later al portion of left upper lobe, which are most likely infectious or inflammatory in etiology. No pleur al effusions or pneumothorax. Central and peripheral airways are patent. Mediastinum: Heart size is normal, without pericardial effusion. No mediastinal or hilar adenopathy . Thoracic aorta is normal in caliber and enhancement. Esophagus is normal in caliber, without hiat al hernia. Bones and chest wall: No suspicious bony lesions. Ribs and thoracic spine appear intact throughout. No axillary or supraclavicular adenopathy. The thyroid is normal in size and there are no incident al findings. Abdomen: Visualized upper abdominal solid organs appear normal in the early arterial phase of enhanc ement. IMPRESSION: 1.No acute pulmonary embolus. 2.Patchy ground glass opacities in the left lower lobe and lateral left upper lobe are most likely in fectious or inflammatory in etiology. Reviewed by: Bernard De La Cruz MD on 07/26/2022 10:12 AM [facility] Approved by: Bernard De La Cruz MD on 07/26/2022 10:12 AM PST Station ID: [id number]
[2022-07-26 10:33] VITALS: BP 131/86
== END 2022-07-26 10:41 | disposition home or self-care (01) ==
LOC: ED 08:14
DX: R07.9 Chest pain, unspecified (principal); J18.9 Pneumonia, unspecified organism; L27.0 Generalized skin eruption due to drugs and medicaments taken internally; L29.9 Pruritus, unspecified; T36.4X5A Adverse effect of tetracyclines, initial encounter
CPT/HCPCS: 36415; 71275; 80053; 84484; 85025; 93005; 96374; 96375; 99284; J1200; Q9967